=== PATIENT | female | born 1995 | race Caucasian/White ===

== ENCOUNTER 2016-11-06 19:48 | Emergency (ER) | payer MEDICAID ==
[2016-11-06 20:13] VITALS: O2SAT 100
[2016-11-06] MEDS ORDERED: Sodium Chloride 0.9% 1,000 ML IV ONE (20:29)
[2016-11-06] MEDS ORDERED: Sodium Chloride 0.9% 1,000 ML ONE (20:53)
[2016-11-06 20:55] LABS: BASO % 0.5 % (0.0-2.0); EOS # 0.1 K/uL (0.0-0.7); EOS % 2.1 % (0.0-4.0); HEMATOCRIT 40.5 % (34.0-47.0); LYMPH # 2.9 K/uL (1.0-4.3); LYMPH % 48.7 % (20.0-40.0); MEAN CELL VOLUME 98.2 fL (81.0-99.0); MEAN CORPUSCULAR HGB CONC 33.6 g/dL (33.0-37.0); MEAN PLATELET VOLUME 9.2 fL (7.2-11.7); MONO # 0.5 K/uL (0.0-0.8); MONO % 8.3 % (0.0-10.0); RED CELL DISTRIBUTION WIDTH 12.9 % (11.5-14.5)
[2016-11-06 21:03] VITALS: RESP 18
[2016-11-06 21:04] LABS: CHLORIDE 99 mmol/L (98-107)
[2016-11-06 21:05] LABS: POTASSIUM 4.2 mmol/L (3.6-5.2); SODIUM 138 mmol/L (132-148)
[2016-11-06 21:06] LABS: INR 1.1; PARTIAL THROMBOPLASTIN TIME 29 SECONDS (21-34)
[2016-11-06 21:07] LABS: ALB/GLOB RATIO 1.2 (1.0-2.1); ALKALINE PHOSPHATASE 35 U/L (38-126); AST/SGOT 17 U/L (14-36); BILIRUBIN,TOTAL 0.6 mg/dL (0.2-1.3); CARBON DIOXIDE 26 mmol/L (22-30); GFR AFRICAN-AMERICAN > 60; TOTAL PROTEIN 7.8 g/dL (6.3-8.3)
[2016-11-06 21:08] LABS: ALT/SGPT 24 U/L (9-52); BLOOD UREA NITROGEN 7 mg/dL (7-17); CALCIUM 9.9 mg/dl (8.6-10.4); GLUCOSE,RANDOM 84 mg/dL (65-105); MAGNESIUM 1.6 mg/dL (1.6-2.3)
[2016-11-06 21:16] LABS: RBC URINE 3 /hpf (0-3); URINE BACTERIA OCC (<OCC); URINE BILIRUBIN NEGATIVE (NEGATIVE); URINE BLOOD NEGATIVE (NEGATIVE); URINE COLOR Yellow (YELLOW); URINE GLUCOSE (UA) NORMAL (Normal); URINE KETONE NEGATIVE (NEGATIVE); URINE LEUKOCYTE ESTERASE 1+ Leu/uL (Negative); URINE PROTEIN NEGATIVE (NEGATIVE); URINE UROBILINOGEN NORMAL mg/dL (0.2-1.0); WBC URINE 5 /hpf (0-5)
--- NOTE | 2016-11-06 21:59 | C.PDOC ---
Time Seen by Provider: 11/06/16 20:17 Chief Complaint (Nursing): Palpitations History Per: Patient Onset/Duration Of Symptoms: Days (3), Intermittent Episodes Current Symptoms Are (Timing): Still Present Associated Symptoms: Headache Quality Of Symptoms: Rapid Heart Rate Severity: Moderate Exacerbating Factor(s): Pos: None Recent travel outside of the [place]: No Additional History Per: Prior Records Past Medical History Reviewed: Historical Data, Nursing Documentation, Vital Signs Vital Signs: Last Vital Signs Temp 98 F 11/06/16 20:08 Pulse 68 11/06/16 20:58 Resp 18 11/06/16 20:58 BP 137/86 11/06/16 20:58 Pulse Ox 100 11/06/16 20:58 - Medical History PMH: Hyperlipidemia Surgical History: No Surg Hx Family History: States: Unknown Family Hx - Social History Hx Tobacco Use: No Hx Alcohol Use: No Hx Substance Use: No - Immunization History Hx Tetanus Toxoid Vaccination: No Hx Influenza Vaccination: No Hx Pneumococcal Vaccination: No Review Of Systems Except As Marked, All Systems Reviewed And Found Negative. Constitutional: Negative for: Fever, Weakness ENT: Negative for: Throat Pain Cardiovascular: Negative for: Chest Pain Respiratory: Positive for: Shortness of Breath. Negative for: Hemoptysis Gastrointestinal: Negative for: Vomiting, Abdominal Pain Musculoskeletal: Negative for: Neck Pain, Back Pain, Leg Pain Skin: Negative for: Rash Neurological: Positive for: Headache. Negative for: Weakness, Numbness, Seizures, Altered Mental Status Physical Exam - Physical Exam Appears: Non-toxic, No Acute Distress Skin: Normal Color, Warm, Dry, No Rash Head: Atraumatic, Normacephalic Eye(s): bilateral: Normal Inspection, PERRL, EOMI Oral Mucosa: Moist Neck: Normal ROM, Supple Cardiovascular: Rhythm Regular Respiratory: Normal Breath Sounds, No Accessory Muscle Use Gastrointestinal/Abdominal: Soft, No Tenderness Back: No CVA Tenderness Extremity: Normal ROM, No Pedal Edema, No Calf Tenderness Neurological/Psych: Oriented x3, Normal Speech, Normal Cognition, Normal Cranial Nerves, No Cerebellar Signs, Normal Motor, Normal Sensation ED Course And Treatment - Laboratory Results Result Diagrams: 11/06/16 20:51 11/06/16 20:51 Lab Interpretation: No Acute Changes Urine POC: Negative ECG: Interpreted By Me, Viewed By Me ECG Rhythm: Sinus Rhythm ECG Interpretation: No Acute Changes Rate From EC O2 Sat by Pulse Oximetry: 100 Pulse Ox Interpretation: Normal - Radiology CXR: Interpreted by Me, Viewed By Me CXR Interpretation: Yes: No Acute Disease - CT Scan/US CT head Other Rad Studies (CT/US): Read By Radiologist, Radiology Report Reviewed CT/US Interpretation: No acute findings. Reassessment Condition: Improved Progress - Interventions Interventions:: Observation, Intravenous fluid - Medications Administered Oral: Acetaminophen - Data Reviewed Data Reviewed: Lab, Diagnostic imaging, EKG, Old records - Patient Status Patient status: Mostly improved - Continuity of Care Discussed patient case with:: Patient, ED Nurse - Patient Plan Patient Plan: Discharge, F/U with PCP Disposition Counseled Patient/Family Regarding: Studies Performed, Diagnosis, Need For Followup, Rx Given - Disposition Disposition: HOME/ ROUTINE Disposition Time: 22:00 Condition: IMPROVED Additional Instructions: Follow up with your doctor for further evaluation and treatment. Return to the ER if you develop weakness, numbness, vomiting, chest pain, dizziness, pass out , worsening of symptoms or if you have any other concerns. Instructions: Palpitations (ED), General Headache (ED) Forms: [employer] (Korean) Print Language: KHMER - Clinical Impression Clinical Impression: Headache, Palpitations
[2016-11-06 22:13] VITALS: BP 133/79; PULSE 97; TEMP 98.4
--- NOTE | 2016-11-07 08:22 | CT ---
PROCEDURE: CT HEAD WITHOUT CONTRAST. HISTORY: Right sided headache COMPARISON: None available. TECHNIQUE: Axial computed tomography images were obtained through the head/brain without intravenous contrast. Radiation dose: Total exam DLP = 864.16 mGy-cm. This CT exam was performed using one or more of the following dose reduction techniques: Automated exposure control, adjustment of the mA and/or kV according to patient size, and/or use of iterative reconstruction technique. FINDINGS: HEMORRHAGE: No intracranial hemorrhage. BRAIN: No mass effect or edema. No atrophy or chronic microvascular ischemic changes. VENTRICLES: Unremarkable. No hydrocephalus. CALVARIUM: Unremarkable. PARANASAL SINUSES: Unremarkable as visualized. No significant inflammatory changes. MASTOID AIR CELLS: Unremarkable as visualized. No inflammatory changes. OTHER FINDINGS: None. IMPRESSION: No acute intracranial pathology identified. Preliminary impression was provided by virtual radiologic.
--- NOTE | 2016-11-07 09:14 | RAD ---
HISTORY: Palpitations COMPARISON: None available. TECHNIQUE: Chest, one view. FINDINGS: LUNGS: No focal consolidation. Please note that chest x-ray has limited sensitivity for the detection of pulmonary masses. PLEURA: No significant pleural effusion identified. No definite pneumothorax . CARDIOVASCULAR: Heart size appears within normal limits. OSSEOUS STRUCTURES: No acute osseous abnormality identified. VISUALIZED UPPER ABDOMEN: Unremarkable. OTHER FINDINGS: None. IMPRESSION: No focal consolidation, significant pleural effusion, or definite pneumothorax identified.
--- NOTE | 2016-11-07 12:29 | CARD ---
APPROVED REPORT EKG Measurement Heart [id number] <Conclusion> Sinus bradycardia Otherwise normal ECG
== END 2016-11-06 22:32 | disposition home or self-care (01) ==
LOC: C.ER 19:48
DX: R51 Headache (principal); R00.2 Palpitations
CPT/HCPCS: 70450; 71010; 80053; 81001; 83735; 84703; 85025; 85378; 85610; 85730; 93005; 96360; 99285; J7040

== ENCOUNTER 2017-07-28 23:23 | Emergency (ER) | payer MEDICAID ==
[2017-07-28 23:33] VITALS: BP 144/70; PULSE 89; RESP 20; TEMP 98.5; O2SAT 99
--- NOTE | 2017-07-29 00:09 | C.PDOC ---
History Of Present Illness 22 year old female presents to the ED c/o pain to the left ear radiating to left side of neck. Patient reports she has not taken any pain medications at home for her symptoms. Patient denies fever, chills, nausea, vomit, dizziness, URI symptoms, weakness, numbness. Time Seen by Provider: 07/28/17 23:45 Chief Complaint (Nursing): ENT Problem History Per: Patient History/Exam Limitations: None Onset/Duration Of Symptoms: Days Current Symptoms Are (Timing): Still Present Quality (Ear): Pain W/Touch Severity: None Anticoagulant/Antiplatlet Use?: No Past Medical History Reviewed: Historical Data, Nursing Documentation, Vital Signs Vital Signs: Last Vital Signs Temp 98.5 F 07/28/17 23:29 Pulse 89 07/28/17 23:29 Resp 20 07/29/17 00:17 BP 144/70 07/28/17 23:29 Pulse Ox 99 07/29/17 00:51 - Medical History PMH: Hyperlipidemia Surgical History: No Surg Hx Family History: States: Unknown Family Hx - Social History Hx Tobacco Use: No Hx Alcohol Use: No Hx Substance Use: No - Immunization History Hx Tetanus Toxoid Vaccination: No Hx Influenza Vaccination: No Hx Pneumococcal Vaccination: No Review Of Systems Constitutional: Negative for: Fever, Chills ENT: Positive for: Ear Pain. Negative for: Ear Discharge, Nose Discharge, Nose Congestion Respiratory: Negative for: Cough, Shortness of Breath Gastrointestinal: Negative for: Nausea, Vomiting Skin: Negative for: Rash Neurological: Negative for: Headache, Dizziness Physical Exam - Physical Exam Appears: Non-toxic, No Acute Distress Skin: Normal Color, Warm, Dry Head: Atraumatic, Normacephalic Eye(s): bilateral: Normal Inspection, PERRL, EOMI Ear(s): Bilateral: Normal Nose: No Discharge, No Epistaxis Oral Mucosa: Moist Throat: Normal, No Erythema, No Exudate Neck: Normal ROM, No Midline Cervical Tenderness, Supple Lymphatic: No Adenopathy (no auricular ) Extremity: Normal ROM Neurological/Psych: Oriented x3, Normal Speech, Normal Cognition Gait: Steady ED Course And Treatment O2 Sat by Pulse Oximetry: 99 (ON RA) Pulse Ox Interpretation: Normal Progress Note: On reassessment, patient is resting comfortably, and is in no acute distress. Patient was instructed to follow up with physician/clinic in 1- 2 days for further evaluation. 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 - Scribe Statement The provider has reviewed the documentation as recorded by the Scribe Bhupinder George All medical record entries made by the Mayoibrachel were at my direction and personally dictated by me. I have reviewed the chart and agree that the record accurately reflects my personal performance of the history, physical exam, medical decision making, and the department course for this patient. I have also personally directed, reviewed, and agree with the discharge instructions and disposition.
== END 2017-07-29 00:17 | disposition home or self-care (01) ==
LOC: C.ER 23:23
DX: H92.02 Otalgia, left ear (principal)

== ENCOUNTER 2017-09-27 21:09 | Inpatient (IN) | payer MEDICAID ==
[2017-09-27] MEDS ORDERED: Sodium Chloride 0.9% 1,000 ML IV ONE (21:27)
--- NOTE | 2017-09-27 21:34 | C.PDOC ---
"History Of Present Illness 22 year old female presents to the ED complaining of epigastric and rlq abdominal pain ongoing for the last 2 hours. Patient denies any fever, vomiting , diarrhea, nausea, or urinary symptoms. She reports she is currently on her menstrual cycle. Time Seen by Provider: 09/27/17 21:21 Chief Complaint (Nursing): Abdominal Pain History Per: Patient History/Exam Limitations: no limitations Onset/Duration Of Symptoms: Hrs (2 hours) Current Symptoms Are (Timing): Still Present Location Of Pain/Discomfort: Epigastric Associated Symptoms: denies: Fever, Nausea, Vomiting, Diarrhea Last Menstral Period: currently on her menstrual cycle Past Medical History Reviewed: Historical Data, Nursing Documentation, Vital Signs Vital Signs: Last Vital Signs Temp 98.2 F 09/28/17 01:07 Pulse 69 09/28/17 01:07 Resp 20 09/28/17 01:07 BP 127/78 09/28/17 01:07 Pulse Ox 100 09/28/17 01:07 - Medical History PMH: Hyperlipidemia Surgical History: No Surg Hx Family History: States: No Known Family Hx - Social History Hx Tobacco Use: No Hx Alcohol Use: No Hx Substance Use: No - Immunization History Hx Tetanus Toxoid Vaccination: No Hx Influenza Vaccination: No Hx Pneumococcal Vaccination: No Review Of Systems Except As Marked, All Systems Reviewed And Found Negative. Constitutional: Negative for: Fever Gastrointestinal: Positive for: Abdominal Pain (Epigastric region ). Negative for: Nausea, Vomiting, Diarrhea Genitourinary: Negative for: Dysuria, Incontinence, Vaginal Discharge, Vaginal Bleeding Physical Exam - Physical Exam Appears: Non-toxic, No Acute Distress Skin: Normal Color, Warm, Dry Head: Atraumatic, Normacephalic Eye(s): bilateral: Normal Inspection Nose: Normal Oral Mucosa: Moist Neck: Supple Chest: Symmetrical Cardiovascular: Rhythm Regular Respiratory: Normal Breath Sounds, No Rales, No Rhonchi, No Wheezing Gastrointestinal/Abdominal: Tenderness (Tenderness to epigastric region ), No Guarding, No Rebound Neurological/Psych: Oriented x3, Normal Speech Gait: Steady ED Course And Treatment - Laboratory Results Result Diagrams: 09/27/17 22:05 09/27/17 22:05 O2 Sat by Pulse Oximetry: 100 (RA) Pulse Ox Interpretation: Normal - CT Scan/US CT abd/pelvis Other Rad Studies (CT/US): Read By Radiologist, Radiology Report Reviewed CT/US Interpretation: EXAM: CT Abdomen and Pelvis With Intravenous Contrast. EXAM DATE/TIME: 09/27/2017 10:24 PM. CLINICAL HISTORY: 22 years old, female; Pain; Abdominal pain; Localized; Upper; Additional info: Upper abd pain,. leukocytosis. TECHNIQUE: Axial computed tomography images of the abdomen and pelvis with intravenous contrast. All CT scans at this facility use at least one of these dose optimization techniques: automated. exposure control; mA and/ or kV adjustment per patient size (includes targeted exams where dose is. matched to clinical indication); or iterative reconstruction. Coronal and sagittal reformatted images were created and reviewed. CONTRAST: 100 ml of [id number] administered intravenously. COMPARISON: No relevant prior studies available. FINDINGS: The liver, spleen, pancreas, kidneys are normal. No gallstones. The appendix is identified on coronal images 41 through 44, axial images 118 -135. It is mildly. dilated measuring 7.5 mm and the lumen is filled with fluid. No periappendiceal stranding. Calcification is noted within the cecal tip possibly producing obstruction. Dilated fluid and stool-filled loop of distal ileum is noted adjacent to the appendix. [facility] | Preliminary Radiology. Report. CONFIDENTIALITY STATEMENT. This report is intended only for the use of the referring physician, and only in accordance with law, If you received this in error, call [phone]. Page 2 of 2. There is free fluid in the right pelvis greater than what would be considered a normal physiologic. amount. The uterus appears normal. Ovarian follicles are noted. IMPRESSION: Mildly dilated, fluid filled appendix concerning for early appendicitis although there is no significant. periappendiceal inflammation. Clinical correlation is recommended and if clinical findings are. ambivalent, CT with oral contrast may be helpful to confirm lack of filling of the appendix. Thank you for allowing us to participate in the care of your patient. Dictated and Authenticated by: Sheryl Tineo MD. 09/28/2017 12:32 AM Eastern Time ([place] & [place]) Medical Decision Making Medical Decision Making: Plan: ro appendicits gastritis pancreatisi pud. - Labs - Zofran 4mg IVP - Protonix 40mg IVP - Fluids - UA - HCG - Reassess epigastirc rlq r/o appendicits. labs imaging pending. pt vomiting in er cannot tolerate po contrast. ct shows early appendciits. accepted to surgical service Disposition - Disposition Disposition: HOSPITALIZED Disposition Time: 02:00 Condition: STABLE - Clinical Impression Clinical Impression: Appendicitis - Scribe Statement The provider has reviewed the documentation as recorded by the Scribe Pauly Scott All medical record entries made by the Mayoibe were at my direction and personally dictated by me. I have reviewed the chart and agree that the record accurately reflects my personal performance of the history, physical exam, medical decision making, and the department course for this patient. I have also personally directed, reviewed, and agree with the discharge instructions and disposition. Decision To Admit - Pt Status Changed To: Hospital Disposition Of: Inpatient - Admit Certification Admit to Inpatient:: After my assessment, the patient will require hospitalization for at least two midnights. This is because of the severity of symptoms shown, intensity of services needed, and/or the medical risk in this patient being treated as an outpatient. - InPatient: Physician Admission Certification:: needs or - . Bed Request Type: Regular Admitting Physician: Scott Child Patient Diagnosis: Appendicitis"
[2017-09-27] MEDS ORDERED: Sodium Chloride 0.9% 1,000 ML ONE (21:52)
[2017-09-27 22:08] LABS: BASO # 0.1 K/uL (0.0-0.2); BASO % 0.5 % (0.0-2.0); EOS # 0.2 K/uL (0.0-0.7); EOS % 1.1 % (0.0-4.0); HEMOGLOBIN 13.7 g/dL (11.0-16.0); LYMPH # 2.7 K/uL (1.0-4.3); LYMPH % 19.5 % (20.0-40.0); MEAN CELL VOLUME 99.1 fL (81.0-99.0); MEAN CORPUSCULAR HEMOGLOBIN 33.3 pg (27.0-31.0); MEAN CORPUSCULAR HGB CONC 33.6 g/dL (33.0-37.0); MEAN PLATELET VOLUME 9.2 fL (7.2-11.7); MONO # 0.7 K/uL (0.0-0.8); MONO % 5.2 % (0.0-10.0); NEUT % 73.7 % (50.0-75.0); RBC 4.11 Mil/uL (3.80-5.20); RED CELL DISTRIBUTION WIDTH 13.2 % (11.5-14.5); WHITE BLOOD COUNT 13.6 K/uL (4.8-10.8)
[2017-09-27 22:10] LABS: HCG,QUALITATIVE URINE NEGATIVE (NEGATIVE)
[2017-09-27 22:13] LABS: SQUAMOUS EPITHIAL 1 /hpf (0-5); URINE BILIRUBIN NEGATIVE (NEGATIVE); URINE BLOOD NEGATIVE (NEGATIVE); URINE CLARITY Clear (Clear); URINE COLOR Yellow (YELLOW); URINE GLUCOSE (UA) NORMAL (Normal); URINE LEUKOCYTE ESTERASE NEG Leu/uL (Negative); URINE PROTEIN NEGATIVE (NEGATIVE)
[2017-09-27 22:16] LABS: INR 1.1; PROTHROMBIN TIME 11.8 SECONDS (9.7-12.2)
[2017-09-27 22:20] LABS: ALB/GLOB RATIO 1.3 (1.0-2.1); ALBUMIN 4.5 g/dL (3.5-5.0); ALT/SGPT 20 U/L (9-52); AST/SGOT 18 U/L (14-36); BLOOD UREA NITROGEN 9 mg/dL (7-17); CALCIUM 9.6 mg/dl (8.6-10.4); GFR AFRICAN-AMERICAN > 60; GFR NON-AFRICAN AMERICAN > 60; LIPASE 74 U/L (23-300)
[2017-09-27] MEDS ORDERED: Iodixanol 320 MG/ML 100 ML BOTTLE IV ONE (22:55)
[2017-09-28] MEDS ORDERED: Piperacillin/Tazobact 3.375 GM in Sodium Chloride 100 ML IVPB STA (00:38)
[2017-09-28] MEDS ORDERED: Piperacillin/Tazobact 3.375 gm 100 ML IVPB ONE ×2 (00:48→17:10)
--- NOTE | 2017-09-28 01:26 | CP.PCM.HP ---
History of Present Illness - History of Present Illness History of Present Illness: 22F with no significant PMHx presents to [facility] ED with complaints of abdominal pain. Patient states pain began around 6PM on 09/27/17 after having dinner. She describes pain began along paraumbilical region. At time of examination patient reported pain is now localized in the right lower quadrant. She denies fever/ chills, reports some nausea but denies vomiting, denies dysuria. Patient also reports feeling constipated. She rates her pain as a 10/10. She states she's never had symptoms like this before. PMH: as stated above PSH: none All: NKDA Soc Hx: Denies smoking, denies illicit drug use, denies EtOH use Present on Admission - Present on Admission Any Indicators Present on Admission: No Review of Systems - Review of Systems Review of Systems: 12pt ROS unremarkable except as sated in HPI Past Patient History - Past Social History Smoking Status: Never Smoked - PSYCHIATRIC Hx Substance Use: No - SURGICAL HISTORY Hx Surgeries: No - ANESTHESIA Hx Anesthesia: No Meds Allergies/Adverse Reactions: Allergies Allergy/AdvReac Type Severity Reaction Status Date / Time No Known Allergies Allergy Unverified 07/28/17 23:33 Physical Exam - Constitutional Appears: No Acute Distress - Head Exam Head Exam: NORMOCEPHALIC - Eye Exam Eye Exam: EOMI, Normal appearance - ENT Exam ENT Exam: Normal Exam - Respiratory Exam Respiratory Exam: NORMAL BREATHING PATTERN - Cardiovascular Exam Cardiovascular Exam: +S1, +S2 - GI/Abdominal Exam GI & Abdominal Exam: Rebound, Soft, Tenderness. absent: Distended, Firm, Guarding, Hernia, Rigid Additional comments: +McBurney's +RLQ tenderness +Rebound - Neurological Exam Neurological exam: Alert, Oriented x3 - Psychiatric Exam Psychiatric exam: Normal Mood - Skin Skin Exam: Dry, Intact, Warm Results - Vital Signs Recent Vital Signs: Last Vital Signs Temp 98.2 F 09/28/17 01:07 Pulse 69 09/28/17 01:07 Resp 20 09/28/17 01:07 BP 127/78 09/28/17 01:07 Pulse Ox 100 09/28/17 01:07 - Labs Result Diagrams: 09/27/17 22:05 09/27/17 22:05 Labs: Laboratory Results - last 24 hr 09/27/17 09/27/17 09/27/17 22:05 22:05 22:05 WBC 13.6 H D RBC 4.11 Hgb 13.7 Hct 40.8 MCV 99.1 H MCH 33.3 H MCHC 33.6 RDW 13.2 Plt Count 241 MPV 9.2 Neut % (Auto) 73.7 Lymph % (Auto) 19.5 L [place] % (Auto) 5.2 Eos % (Auto) 1.1 Baso % (Auto) 0.5 Neut # (Auto) 10.0 H Lymph # (Auto) 2.7 [place] # (Auto) 0.7 Eos # (Auto) 0.2 Baso # (Auto) 0.1 PT 11.8 INR 1.1 APTT 28 Sodium Potassium Chloride Carbon Dioxide Anion Gap BUN Creatinine Est GFR ( Amer) Est GFR (Non-Af Amer) Random Glucose Calcium Total Bilirubin AST ALT Alkaline Phosphatase Total Protein Albumin Globulin Albumin/Globulin Ratio Lipase Urine Color Yellow Urine Clarity Clear Urine pH 6.0 Ur Specific [place] 1.025 Urine Protein Negative Urine Glucose (UA) Normal Urine Ketones Negative Urine Blood Negative Urine Nitrate Negative Urine Bilirubin Negative Urine Urobilinogen 2.0 H Ur Leukocyte Esterase Neg Urine WBC (Auto) 1 Urine RBC (Auto) 5 H Ur Squamous Epith Cells 1 Urine HCG, Qual Negative 09/27/17 22:05 WBC RBC Hgb Hct MCV MCH MCHC RDW Plt Count MPV Neut % (Auto) Lymph % (Auto) [place] % (Auto) Eos % (Auto) Baso % (Auto) Neut # (Auto) Lymph # (Auto) [place] # (Auto) Eos # (Auto) Baso # (Auto) PT INR APTT Sodium 144 Potassium 3.7 Chloride 102 Carbon Dioxide 26 Anion Gap 19 BUN 9 Creatinine 0.8 Est GFR ( Amer) > 60 Est GFR (Non-Af Amer) > 60 Random Glucose 111 H Calcium 9.6 Total Bilirubin 0.5 AST 18 ALT 20 Alkaline Phosphatase 44 Total Protein 7.9 Albumin 4.5 Globulin 3.4 Albumin/Globulin Ratio 1.3 Lipase 74 Urine Color Urine Clarity Urine pH Ur Specific [place] Urine Protein Urine Glucose (UA) Urine Ketones Urine Blood Urine Nitrate Urine Bilirubin Urine Urobilinogen Ur Leukocyte Esterase Urine WBC (Auto) Urine RBC (Auto) Ur Squamous Epith Cells Urine HCG, Qual - Imaging and Cardiology CT scan - abdomen Status: Image reviewed by me, Report reviewed by me Assessment & Plan - Assessment and Plan (Free Text) Assessment: 22F with acute appendicitis Plan: Lux score 8/10 NPO IVF ABx Analgesic/Anti-emetic SCDs OR for laparoscopic appendectomy Consent in chart Further recs per Dr. Mateusz White PGY3
[2017-09-28] MEDS: Lactated Ringer's 1,000 ML IV SCH ×4 (01:37→21:21)
[2017-09-28] MEDS: Piperacillin/Tazobact 3.375 GM in Sodium Chloride 100 ML IVPB SCH ×3 (06:55→18:04)
--- NOTE | 2017-09-28 07:54 | CP.PCM.CON ---
Addendum entered and electronically signed by Bobby Emerson DO 09/28/17 11:49: Patient is medically optimized for surgery. Anticoagulation determined by surgery. Pre-operative, Intra-operative, and post-operative management per Dr. Child and the surgical team. Addendum entered and electronically signed by Bobby Emerson DO 09/28/17 09:39: Spoke with Dr. Pierre, who has reviewed STAT ECHO. ECHO showed no left ventricular dysfunction. Per Dr. Pierre patient is low-risk for intra- operative cardiac event. Calculated risk scores: Lucero Score: Estimated Risk Probability for Perioperative Myocardial Infarction or Cardiac Arrest 0.21 % Detsky score: Risk Index Class II (7% Complication Risk) Original Note: <Bobby Emerson - Last Filed: 09/28/17 09:26> History of Present Illness - History of Present Illness History of Present Illness: PGY2 consult note for hospitalist service Reason for consult: Medical clearance CC: RLQ abdominal pain HPI: Patient is a 22 year old female, with PMHx of pericardial effusion and hyperlipidemia, presenting to [facility] ED for abdominal pain. Patient that pain began yesterday after dinner. The pain came on "suddenly" and was initially located in the paraumbilical region. Over an hour pain became progressively worse and patient decided to go to ED. While in the ED pain became a "steady, stabbing pain" that shifted to the right lower quadrant. She denies fever/chills , but admits anorexia and one episode of non-bloody vomiting while in the ED. She rates pain currently as a 10/10. FDLMP: 09/23/17 Patient reports history of pericardial effusion. Patient reports that she becomes short of breath "when she walks more than 2 blocks" and walks more than 2 flights of stairs. She denies dyspnea at rest, cough, fever, or chills. She states she has seen Dr. Bhanu Pierre, [employer], as outpatient and had ECHO performed one month ago. This science writer spoke with Dr Pierre who reports ECHO showed pericardial effusion but showed no sign of LV dysfunction. PMHx: Pericardial effusion, Hyperlipidemia PSHx: [place] tooth extraction (2014) SHx: Denies Allergies: Denies Fam Hx: Father - HTN, Mother - denies Home meds: Junel - PO (OCP), Multivitamin, Fish oil 1 gram daily PMD: Faheem Sheth Cardio outpatient: Ignacio Review of Systems - Constitutional Constitutional: Anorexia. absent: Chills, Fever - EENT Eyes: absent: Change in Vision Ears: absent: Ear Pain - Cardiovascular Cardiovascular: Dyspnea on Exertion. absent: Chest Pain, Dyspnea - Respiratory Respiratory: Dyspnea. absent: Cough - Gastrointestinal Gastrointestinal: Abdominal Pain (RLQ), Nausea, Vomiting (non-bloody) - Genitourinary Genitourinary: absent: Dysuria - Menstruation Menstruation: Currently Menstual - Musculoskeletal Musculoskeletal: absent: Numbness, Tingling - Integumentary Integumentary: absent: Dry Skin, Wounds - Psychiatric Psychiatric: absent: Anxiety, Depression - Endocrine Endocrine: absent: Palpitations Past Patient History - Past Social History Smoking Status: Never Smoked - PSYCHIATRIC Hx Substance Use: No - SURGICAL HISTORY Hx Surgeries: No - ANESTHESIA Hx Anesthesia: No Meds Allergies/Adverse Reactions: Allergies Allergy/AdvReac Type Severity Reaction Status Date / Time No Known Allergies Allergy Unverified 07/28/17 23:33 - Medications Medications: Current Medications Acetaminophen (Tylenol 325mg Tab) 650 mg PO Q6 PRN PRN Reason: Fever >100.4 F Lactated Ringer's (Lactated Ringer's) 1,000 mls @ 100 mls/hr IV .Q10H [facility] Last Admin: 09/28/17 01:37 Dose: 100 mls/hr Piperacillin Sod/Tazobactam (Sod 3.375 gm/ Sodium Chloride) 100 mls @ 200 mls/ hr IVPB Q6H [facility] PRN Reason: Protocol Last Admin: 09/28/17 06:55 Dose: 200 mls/hr Morphine Sulfate (Morphine) 4 mg IVP Q4 PRN PRN Reason: Pain, moderate (4-7) Ondansetron HCl (Zofran Inj) 4 mg IVP Q6H PRN PRN Reason: Nausea/Vomiting Physical Exam - Constitutional Appears: Non-toxic, No Acute Distress - Head Exam Head Exam: ATRAUMATIC, NORMAL INSPECTION - Eye Exam Eye Exam: EOMI. absent: Scleral icterus Pupil Exam: PERRL - ENT Exam ENT Exam: Mucous Membranes Moist - Neck Exam Neck exam: Positive for: Normal Inspection - Respiratory Exam Respiratory Exam: Clear to Auscultation Bilateral, NORMAL BREATHING PATTERN - Cardiovascular Exam Cardiovascular Exam: Bradycardia, +S1, +S2 - GI/Abdominal Exam GI & Abdominal Exam: Guarding (voluntary, RLQ), Normal Bowel Sounds, Soft, Tenderness (RLQ). absent: Diminished Bowel Sounds Additional comments: Positive McBurney Sign Positive Psoas/Obturator - Extremities Exam Extremities exam: Positive for: normal inspection. Negative for: pedal edema, tenderness - Back Exam Back exam: absent: CVA tenderness (L), CVA tenderness (R) - Neurological Exam Neurological exam: Alert, CN II-XII Intact, Oriented x3 - Psychiatric Exam Psychiatric exam: Normal Affect, Normal Mood - Skin Skin Exam: Dry, Normal Color, Warm Additional comments: Tattoo on left chest, and midline upper back Results - Vital Signs Recent Vital Signs: Last Vital Signs Temp 98.5 F 09/28/17 07:16 Pulse 48 L 09/28/17 07:16 Resp 20 09/28/17 07:16 BP 138/83 09/28/17 07:16 Pulse Ox 100 09/28/17 07:16 - Labs Result Diagrams: 09/27/17 22:05 09/27/17 22:05 Labs: Laboratory Results - last 24 hr 09/27/17 09/27/17 09/27/17 22:05 22:05 22:05 WBC 13.6 H D RBC 4.11 Hgb 13.7 Hct 40.8 MCV 99.1 H MCH 33.3 H MCHC 33.6 RDW 13.2 Plt Count 241 MPV 9.2 Neut % (Auto) 73.7 Lymph % (Auto) 19.5 L Foard % (Auto) 5.2 Eos % (Auto) 1.1 Baso % (Auto) 0.5 Neut # (Auto) 10.0 H Lymph # (Auto) 2.7 Foard # (Auto) 0.7 Eos # (Auto) 0.2 Baso # (Auto) 0.1 PT 11.8 INR 1.1 APTT 28 Sodium Potassium Chloride Carbon Dioxide Anion Gap BUN Creatinine Est GFR ( Amer) Est GFR (Non-Af Amer) Random Glucose Calcium Total Bilirubin AST ALT Alkaline Phosphatase Total Protein Albumin Globulin Albumin/Globulin Ratio Lipase Urine Color Yellow Urine Clarity Clear Urine pH 6.0 Ur Specific [place] 1.025 Urine Protein Negative Urine Glucose (UA) Normal Urine Ketones Negative Urine Blood Negative Urine Nitrate Negative Urine Bilirubin Negative Urine Urobilinogen 2.0 H Ur Leukocyte Esterase Neg Urine WBC (Auto) 1 Urine RBC (Auto) 5 H Ur Squamous Epith Cells 1 Urine HCG, Qual Negative Blood Type Antibody Screen 09/27/17 09/28/17 22:05 04:26 WBC RBC Hgb Hct MCV MCH MCHC RDW Plt Count MPV Neut % (Auto) Lymph % (Auto) Foard % (Auto) Eos % (Auto) Baso % (Auto) Neut # (Auto) Lymph # (Auto) Foard # (Auto) Eos # (Auto) Baso # (Auto) PT INR APTT Sodium 144 Potassium 3.7 Chloride 102 Carbon Dioxide 26 Anion Gap 19 BUN 9 Creatinine 0.8 Est GFR ( Amer) > 60 Est GFR (Non-Af Amer) > 60 Random Glucose 111 H Calcium 9.6 Total Bilirubin 0.5 AST 18 ALT 20 Alkaline Phosphatase 44 Total Protein 7.9 Albumin 4.5 Globulin 3.4 Albumin/Globulin Ratio 1.3 Lipase 74 Urine Color Urine Clarity Urine pH Ur Specific [place] Urine Protein Urine Glucose (UA) Urine Ketones Urine Blood Urine Nitrate Urine Bilirubin Urine Urobilinogen Ur Leukocyte Esterase Urine WBC (Auto) Urine RBC (Auto) Ur Squamous Epith Cells Urine HCG, Qual Blood Type A POSITIVE Antibody Screen Negative Assessment & Plan - Assessment and Plan (Free Text) Plan: Acute Appendicitis Admit to Med/surg WBC Elevated, Afebrile CT A/P (09/28/17): Mildly dilated, fluid filled appendix concerning for early appendicitis although there is no significant periappendiceal inflammation. Clinical correlation is recommended and if clinical findings are ambivalent, CT with oral contrast may be helpful to confirm lack of filling of the appendix. Lipase 74,LFTs WNL Pre-op testing: CXR (09/28/17): No acute disease (wetread, f/u official report) Coags: INR 1.1 B-HCG test: negative UA: Negative LE/nitrite, 5 RBC f/u EKG Dr. Pierre, Cardio consulted for cardiac clearance, help appreciated - STAT ECHO prior to surgery Zosyn 3.375gm IV Q6H (started 09/28/17, Day 1) LR @ 100cc/hr Tylenol 650mg PO Q6H PRN Morphine 4mg IV Q4H PRN Zofran 4mg IV Q6H PRN for nausea NPO Management of Pain Meds/Fluids/Diet per Surgical team Lucero Score: Estimated Risk Probability for Perioperative Myocardial Infarction or Cardiac Arrest 0.21 % Detsky score: Risk Index Class II (7% Complication Risk) Pericardial Effusion Previous ECHO (08/2017): Performed outpatient. Seen by [employer] Dr Pierre who reports it showed "pericardial effusion without signs of LV dysfunction" Dr. Pierre, Cardio consulted for cardiac clearance, help appreciated - STAT ECHO prior to surgery Pt NPO for surgery pending cardiac clearance Hyperlipidemia Continue Home Fish Oil 1 gm daily once no longer NPO Leukocytosis WBC 13.6 on admission, without left shift or bandemia Afebrile Etiology: Appendicitis Antibiotics as above Monitor Prophylaxis SCDs HOLD heparin due to pending surgical intervention; restart on surgical team instructions Protonix 40mg IV given once in ED Bobby Emerson PGY-2 D/w attending, Dr. Collier <Sandie Collier V - Last Filed: 09/28/17 12:25> Meds - Medications Medications: Current Medications Acetaminophen (Tylenol 325mg Tab) 650 mg PO Q6 PRN PRN Reason: Fever >100.4 F Lactated Ringer's (Lactated Ringer's) 1,000 mls @ 100 mls/hr IV .Q10H [facility] Last Admin: 09/28/17 01:37 Dose: 100 mls/hr Piperacillin Sod/Tazobactam (Sod 3.375 gm/ Sodium Chloride) 100 mls @ 200 mls/ hr IVPB Q6H [facility] PRN Reason: Protocol Last Admin: 09/28/17 06:55 Dose: 200 mls/hr Morphine Sulfate (Morphine) 4 mg IVP Q4 PRN PRN Reason: Pain, moderate (4-7) Ondansetron HCl (Zofran Inj) 4 mg IVP Q6H PRN PRN Reason: Nausea/Vomiting Results - Vital Signs Recent Vital Signs: Last Vital Signs Temp 98.1 F 09/28/17 08:27 Pulse 54 L 09/28/17 08:27 Resp 20 09/28/17 08:27 BP 135/85 09/28/17 08:27 Pulse Ox 98 09/28/17 08:27 - Labs Result Diagrams: 09/27/17 22:05 09/27/17 22:05 Labs: Laboratory Results - last 24 hr 09/27/17 09/27/17 09/27/17 22:05 22:05 22:05 WBC 13.6 H D RBC 4.11 Hgb 13.7 Hct 40.8 MCV 99.1 H MCH 33.3 H MCHC 33.6 RDW 13.2 Plt Count 241 MPV 9.2 Neut % (Auto) 73.7 Lymph % (Auto) 19.5 L Foard % (Auto) 5.2 Eos % (Auto) 1.1 Baso % (Auto) 0.5 Neut # (Auto) 10.0 H Lymph # (Auto) 2.7 Foard # (Auto) 0.7 Eos # (Auto) 0.2 Baso # (Auto) 0.1 PT 11.8 INR 1.1 APTT 28 Sodium Potassium Chloride Carbon Dioxide Anion Gap BUN Creatinine Est GFR ( Amer) Est GFR (Non-Af Amer) Random Glucose Calcium Total Bilirubin AST ALT Alkaline Phosphatase Total Protein Albumin Globulin Albumin/Globulin Ratio Lipase Urine Color Yellow Urine Clarity Clear Urine pH 6.0 Ur Specific [place] 1.025 Urine Protein Negative Urine Glucose (UA) Normal Urine Ketones Negative Urine Blood Negative Urine Nitrate Negative Urine Bilirubin Negative Urine Urobilinogen 2.0 H Ur Leukocyte Esterase Neg Urine WBC (Auto) 1 Urine RBC (Auto) 5 H Ur Squamous Epith Cells 1 Urine HCG, Qual Negative Blood Type Antibody Screen 09/27/17 09/28/17 22:05 04:26 WBC RBC Hgb Hct MCV MCH MCHC RDW Plt Count MPV Neut % (Auto) Lymph % (Auto) Foard % (Auto) Eos % (Auto) Baso % (Auto) Neut # (Auto) Lymph # (Auto) [place] # (Auto) Eos # (Auto) Baso # (Auto) PT INR APTT Sodium 144 Potassium 3.7 Chloride 102 Carbon Dioxide 26 Anion Gap 19 BUN 9 Creatinine 0.8 Est GFR ( Amer) > 60 Est GFR (Non-Af Amer) > 60 Random Glucose 111 H Calcium 9.6 Total Bilirubin 0.5 AST 18 ALT 20 Alkaline Phosphatase 44 Total Protein 7.9 Albumin 4.5 Globulin 3.4 Albumin/Globulin Ratio 1.3 Lipase 74 Urine Color Urine Clarity Urine pH Ur Specific [place] Urine Protein Urine Glucose (UA) Urine Ketones Urine Blood Urine Nitrate Urine Bilirubin Urine Urobilinogen Ur Leukocyte Esterase Urine WBC (Auto) Urine RBC (Auto) Ur Squamous Epith Cells Urine HCG, Qual Blood Type A POSITIVE Antibody Screen Negative Attending/Attestation - Attestation I have personally seen and examined this patient.: Yes I have fully participated in the care of the patient.: Yes I have reviewed all pertinent clinical information: Yes Notes (Text): Patient seen, examined, case discussed with general medical practitioner. 32-year-old female past medical history including pericardial effusion, high cholesterol came into the emergency room overnight for abdominal pain secondary to appendicitis. Medicine is consultation per request a surgery for medical clearance in light of pericardial effusion. Patient has underwent a stat echo this morning. Patient is accompanied by both her mother, father, and boyfriend at bedside. Patient has allowed o discuss her medical information in front of these members of her family at 9AM. Review of systems: Denies fever, denies chills., denies chest pain, denies shortness of breath, reports in nausea, reports right lower abdominal pain about 7-10 on pain scale, denies dysuria, denies constipation, denies diarrhea, denies numbness tingling, Resident has spoken with patient's candy cooker helper Dr. Pierre who is reviewed echo and indicated patient is has low intraoperative cardiac risk and has normal LV function. Patient does have follow-up appointment with Dr. Pierre in October. Patient herself takes fish oil for her cholesterol problem and is on oral contraceptives. Patient reports last day of her period was yesterday. Review of labs noted and imaging noted: Chest x-ray shows no active disease. CAT scan abdomen and pelvis: Mildly dilated fluid-filled appendix concerning for developing or early acute appendicitis clinical correlation is recommended. Dilated fluid and stool-filled loops of distal ileum noted adjacent to the appendix. Under distended transverse colon, limits evacuation of that level. Clinical with oral contrast enhanced scan may be better free fluid in the right pelvis greater than left. EKG: Sinus bradycardia heart rate 53 no blocks noted Pending official read of echo. Her candy cooker helper has reviewed normal left ventricle function is low cardiac risk or discussion with resident Emerson. Assessment/Plan 1) Acute Appendicitis Assessment and plan Patient admitted to general surgery. General surgeon Dr. Cruz on the case Preoperative/intraoperative/postoperative management per surgery Chemical anticoagulation to be determined by surgery Pain management to be determined by surgery Zosyn 3.375gm IV Q6H (started 09/28/17, Day 1) LR @ 100cc/hr Tylenol 650mg PO Q6H PRN Morphine 4mg IV Q4H PRN Zofran 4mg IV Q6H PRN for nausea NPO Medicine on consult for medical clearance in light of medical history including pericardial effusion and cholesterol CT A/P (09/28/17): Mildly dilated, fluid filled appendix concerning for early appendicitis although there is no significant periappendiceal inflammation. Clinical correlation is recommended and if clinical findings are ambivalent, CT with oral contrast may be helpful to confirm lack of filling of the appendix. Lipase 74,LFTs WNL Pre-op testing: CXR (09/28/17): No acute disease Coags: INR 1.1 B-HCG test: negative EKG: Sinus bradycardia heart rate 53 no blocks noted---> asymptomatic Pending official read of echo. Her candy cooker helper has reviewed normal left ventricle function is low cardiac risk or discussion with resident Murch. Dr. Pierre, Cardio consulted for cardiac clearance, help appreciated - STAT ECHO prior to surgery: Reviewed with resident: Normal systolic LV function, her candy cooker helper stable for surgery Nic Peripoerative Cardiac Risk Score: 0.21% Estimated Risk Probability for Perioperative Myocardial Infarction or Cardiac Arrest Detsky score cardiac risk for noncardiac surgery :1 associated Class II (7% Complication Risk) Patient is medically optimized prior to procedure. Surgery and anesthesia anesthesia to discuss the risk and benefits of procedure respectively. 2) History of Pericardial Effusion Assessment and plan * Previous ECHO (08/2017): Performed outpatient. Seen by [employer] Dr Pierre who reports it showed "pericardial effusion without signs of LV dysfunction" * Dr. Pierre, Cardio consulted for cardiac clearance, help appreciated * Completed STAT ECHO prior to surgery * Per cardiology, stable for procedure 3) Hyperlipidemia Assessment and plan * Continue Home Fish Oil 1 gm daily once no longer NPO 4) Leukocytosis Assessment and plan * WBC 13.6 on admission, without left shift or bandemia * Afebrile * Etiology: Appendicitis * Antibiotics as above * Monitor 5) Abnormal UA Assessment and plan * Patient is asymptomatic for any Urinary tract infection. * Patient reports she finished the last day of her period yesterday. * Recommend repeat UA patient has completed period. 6) Prophylaxis * SCDs * HOLD heparin due to pending surgical intervention; restart on surgical team instructions
--- NOTE | 2017-09-28 08:54 | CT ---
Date of service: 09/27/2017 PROCEDURE: CT Abdomen and Pelvis without intravenous contrast HISTORY: upper abdominal pain,leukocytosis COMPARISON: None. TECHNIQUE: Multiple contiguous axial images were performed through the abdomen and pelvis with the use intravenous contrast. Subsequently, sagittal and coronal reformatted images were obtained. Radiation dose: Total exam DLP = 316 mGy-cm. This CT exam was performed using one or more of the following dose reduction techniques: Automated exposure control, adjustment of the mA and/or kV according to patient size, and/or use of iterative reconstruction technique. FINDINGS: LOWER THORAX: Unremarkable. LIVER: Mild intrahepatic biliary ductal dilatation. GALLBLADDER AND BILE DUCTS: Unremarkable. PANCREAS: Unremarkable. No gross lesion or ductal dilatation. SPLEEN: Unremarkable. ADRENALS: Unremarkable. No mass. KIDNEYS AND URETERS: Unremarkable. No hydronephrosis. No solid mass. VASCULATURE: Unremarkable. No aortic aneurysm. BOWEL: Dilated fluid and stool filled loops of distal ileum noted adjacent to the appendix. Under distended transverse colon, limits evaluation at that level. Correlation with oral contrast-enhanced scan may helpful for better delineation of the bowel. APPENDIX: Prominent appendix measuring up to 8 millimeters with associated fluid filled lumen. This is best identified on series 3, images 118-135. In addition, there is a 5 millimeter calcification within the cecal tip which may represent a developing appendicolith and or calcification versus obstruction. Clinical correlation. PERITONEUM: Free fluid in the right pelvis greater than left. LYMPH NODES: Unremarkable. No enlarged lymph nodes. BLADDER: Unremarkable. REPRODUCTIVE: Heterogeneous uterus and bilateral adnexa. BONES: Scoliotic curvature of the spine. OTHER FINDINGS: None. IMPRESSION: 1. Mildly dilated fluid-filled appendix concerning for developing or early acute appendicitis. Clinical correlation is recommended. Alternatively, correlation with an oral contrast CT scan may be helpful to confirm lack of filling of the appendix. 2. Dilated fluid and stool filled loops of distal ileum noted adjacent to the appendix. Under distended transverse colon, limits evaluation at that level. Correlation with oral contrast-enhanced scan may helpful for better delineation of the bowel. 3. Free fluid in the right pelvis greater than left. Additional findings as above. These findings were preliminarily reported at 12:32 a.m. on 09/28/[address] Sheryl Tieno from [facility].
--- NOTE | 2017-09-28 09:40 | RAD ---
Date of service: 09/28/2017 HISTORY: pre-op COMPARISON: 11/06/2016 FINDINGS: LUNGS: No active pulmonary disease. PLEURA: No significant pleural effusion identified, no pneumothorax apparent. CARDIOVASCULAR: Normal. OSSEOUS STRUCTURES: No significant abnormalities. VISUALIZED UPPER ABDOMEN: Normal. OTHER FINDINGS: None. IMPRESSION: No active disease.
--- NOTE | 2017-09-28 14:16 | CP.PCM.CON ---
History of Present Illness - History of Present Illness History of Present Illness: ASKED TO SEE PT BY DR KALE VERA FOR CARDIOLOGY CONSULT COVERAGE. 22 Y/O FEMALE WITH ACUTE APPENDICITIS, IN NEED OF SURGICAL INTERVENTION. ASKED TO SEE PT FOR CARDIOVASCULAR EVAL PRIOR TO SURGERY. PT HAS A RECENT HX OF PERICARIAL EFFUSION NOTED ON OUT PT ECHO. REPEAT INPT ECHO REVEALS PLEURAL EFFUSION AND NO EVIDENCE OF PERICARDIAL EFFUSION. PT DENIES CP, PALP, LH, DIZZINESS, SOB. SHE ADMITS TO ABD PAIN, LOSS OF APPETITE, FATIGUE AND FEVER. PT HAS NO ORTHOPNEA, PND, ARSENIO, BYRNES. Review of Systems - Constitutional Constitutional: As Per HPI, Fatigue, Fever, Malaise. absent: Anorexia, Chills, Daytime Sleepiness, Excessive Sweating, Frequent Falls, Headache, Increased Appetite, Lethargy, Night Sweats, Snoring, Sleep Apnea, Weight Gain, Weight Loss , Weakness, Other - EENT Eyes: As Per HPI. absent: Blind Spots, Blurred Vision, Change in Vision, Decreased Night Vision, Diplopia, Discharge, Dry Eye, Exophthalmos, Floaters, Irritation, Itchy Eyes, Loss of Peripheral Vision, Pain, Photophobia, Requires Corrective Lenses, Sees Flashes, Spots in Vision, Tunnel Vision, Other Visual Disturbances, Loss of Vision, Other Ears: As Per HPI. absent: Decreased Hearing, Ear Discharge, Ear Pain, Tinnitus , Abnormal Hearing, Disequilibrium, Dizziness, Other Nose/Mouth/Throat: As Per HPI. absent: Epistaxis, Nasal Congestion, Nasal Discharge, Nasal Obstruction, Nasal Trauma, Nose Pain, Post Nasal Drip, Sinus Pain, Sinus Pressure, Bleeding Gums, Change in Voice, Dental Pain, Dry Mouth, Dysphagia, Halitosis, Hoarsness, Lip Swelling, Mouth Lesions, Mouth Pain, Odynophagia, Sore Throat, Throat Swelling, Tongue Swelling, Facial Pain, Neck Pain, Neck Mass, Other - Breasts Breasts: As Per HPI. absent: Change in Shape, Mass, Pain, Nipple Discharge, Nipple Inversion, Skin Changes, Swelling, Other - Cardiovascular Cardiovascular: As Per HPI. absent: Acrocyanosis, Chest Pain, Chest Pain at Rest, Chest Pain with Activity, Claudication, Diaphoresis, Dyspnea, Dyspnea on Exertion, Edema, Irregular Heart Rhythm, Pain Radiating to Arm/Neck/Jaw, Leg Edema, Leg Ulcers, Lightheadedness, Orthopnea, Palpitations, Paroxysmal Nocturnal Dyspnea, Pedal Edema, Radiating Pain, Rapid Heart Rate, Slow Heart Rate, Syncope, Other - Respiratory Respiratory: As Per HPI. absent: Cough, Dyspnea, Hemoptysis, Dyspnea on Exertion, Wheezing, Snoring, Stridor, Pain on Inspiration, Chest Congestion, Excessive Mucous Production, Change in Mucous Color, Pain with Coughing, Other - Gastrointestinal Gastrointestinal: As Per HPI, Abdominal Pain. absent: Belching, Bloating, Change in Bowel Habits, Change in Stool Character, Coffee Ground Emesis, Constipation, Cramping, Diarrhea, Dyspepsia, Dysphagia, Early Satiety, Excessive Flatus, Fecal Incontinence, Heartburn, Hematemesis, Hematochezia, Loose Stools, Melena, Nausea, Odynophagia, Temesmus, Vomiting, Other - Genitourinary Genitourinary: As Per HPI. absent: Change in Urinary Stream, Difficulty Urinating, Dysuria, Flank Pain, Hematuria, Pyuria, Nocturia, Urinary Incontinence, Urinary Frequency, Urinary Hesitance, Urinary Urgency, Voiding Freq/Small Amts, Freq UTI, Hx Renal/Bladder Calculi, Hx /Renal Surgery, Bladder Distension, Other - Reproductive: Female Reproductive:Female: As Per HPI. absent: Amenorrhea, Amenorrhea/ Control, Currently Menstual, Cycle <21 Days, Cycle >35 Days, Cycle Variable, Menses 1-7 Days, Menses >/= 8 Days, Menses Variable, Cycle > 4 Weeks Between, No Menses for 6 Months, Heavy Menses, Light Menses, Normal Menses, Spotting Between Cycles , S/P Hysterectomy, Menopausal, Post Menopausal, Premenarche, Abnormal Vaginal Bleeding, Dysmenorrhea, Dyspareunia, Genital Lesions, Genital Pruritis, Pelvic Pain, Prolapse Symptoms, Sexual Dysfunction, Vaginal Discharge, Vaginal Dryness , Vaginal Odor, Vaginal Pruritis, Other - Menstruation Menstruation: As Per HPI. absent: Amenorrhea, Amenorrhea/ Control, Currently Menstual, Cycle <21 Days, Cycle >35 Days, Cycle Variable, Menses 1-7 Days, Menses >/= 8 Days, Menses Variable, Cycle > 4 Weeks Between, No Menses for 6 Months, Heavy Menses, Light Menses, Normal Menses, Spotting Between Cycles , S/P Hysterectomy, Menopausal, Post Menopausal, Premenarche, Abnormal Vaginal Bleeding, Dysmenorrhea, Other - Musculoskeletal Musculoskeletal: As Per HPI. absent: Abnormal Gait, Arthralgias, Atrophy, Back Pain, Deformity, Joint Swelling, Limited Range of Motion, Loss of Height, Muscle Cramps, Muscle Weakness, Myalgias, Neck Pain, Numbness, Radiating Pain into Limb, Stiffness, Tingling, Other - Integumentary Integumentary: As Per HPI. absent: Acne, Alopecia, Bleeding Lesions, Change in Hair, Change in Nails, Change in Pigmentation, Changing Lesions, Dry Skin, Erythema, Furuncle, Hirsutism, Lesions, New Lesions, Non-Healing Lesions, Photosensitivity, Pruritus, Rash, Skin Pain, Skin Ulcer, Sores, Striae, Swelling , Unusual Bruising, Wounds, Jaundice, Other - Neurological Neurological: As Per HPI. absent: Abnormal Gait, Abnormal Hearing, Abnormal Movements, Abnormal Speech, Behavioral Changes, Burning Sensations, Confusion, Convulsions, Disequilibrium, Dizziness, Numbness, Focal Weakness, Frequent Falls , Headaches, Lack of Coordination, Loss of Vision, Memory Loss, Paresthesias, Radicular Pain, Restless Legs, Sensory Deficit, Syncope, Tingling, Tremor, Vertigo, Weakness, Other Visual Disturbances, Other - Psychiatric Psychiatric: As Per HPI. absent: Abnormal Sleep Pattern, Anhedonia, Anxiety, Auditory Hallucinations, Behavioral Changes, Change in Appetite, Change in Libido, Confusion, Depression, Difficulty Concentrating, Hallucinations, Homicidal Ideation, Hopelessness, Irritability, Memory Loss, Mood Swings, Panic Attacks, Paranoia, Suicidal Ideation, Visual Hallucinations, Tactile Hallucinations, Other - Endocrine Endocrine: As Per HPI. absent: Change in Body Appearance, Change in Libido, Cold Intolorance, Deepening of Voice, Excessive Sweating, Fatigue, Flushing, Heat Intolorance, Increase in Ring/Shoe/Hat Size, Palpitations, Polydipsia, Polyphagia, Polyuria, Other - Hematologic/Lymphatic Hematologic: As Per HPI. absent: Easy Bleeding, Easy Bruising, Lymphadenopathy , Other Past Patient History - Past Medical History & Family History Past Medical History?: Yes - Past Social History Smoking Status: Never Smoked Chewing Tobacco Use: No Cigar Use: No Alcohol: None Drugs: Denies Home Situation {Lives}: With Family - CARDIAC Hx Hypercholesterolemia: Yes - PULMONARY Hx Respiratory Disorders: No - NEUROLOGICAL Hx Neurological Disorder: No - HEENT Hx HEENT Problems: No - RENAL Hx Chronic Kidney Disease: No - ENDOCRINE/METABOLIC Hx Endocrine Disorders: No - HEMATOLOGICAL/ONCOLOGICAL Hx Blood Disorders: No - INTEGUMENTARY Hx Dermatological Problems: No - MUSCULOSKELETAL/RHEUMATOLOGICAL Hx Musculoskeletal Disorders: No Hx Falls: No - GASTROINTESTINAL Hx Gastrointestinal Disorders: No - GENITOURINARY/GYNECOLOGICAL Hx Genitourinary Disorders: No - PSYCHIATRIC Hx Substance Use: No - SURGICAL HISTORY Hx Surgeries: No - ANESTHESIA Hx Anesthesia: No Hx Anesthesia Reactions: No Hx Malignant Hyperthermia: No Has any member of the family had a problem w/ anesthesia?: No Meds Allergies/Adverse Reactions: Allergies Allergy/AdvReac Type Severity Reaction Status Date / Time No Known Allergies Allergy Unverified 07/28/17 23:33 - Medications Medications: Current Medications Acetaminophen (Tylenol 325mg Tab) 650 mg PO Q6 PRN PRN Reason: Fever >100.4 F Lactated Ringer's (Lactated Ringer's) 1,000 mls @ 100 mls/hr IV .Q10H [facility] Last Admin: 09/28/17 12:30 Dose: 100 mls/hr Piperacillin Sod/Tazobactam (Sod 3.375 gm/ Sodium Chloride) 100 mls @ 200 mls/ hr IVPB Q6H [facility] PRN Reason: Protocol Last Admin: 09/28/17 13:40 Dose: 200 mls/hr Morphine Sulfate (Morphine) 4 mg IVP Q4 PRN PRN Reason: Pain, moderate (4-7) Ondansetron HCl (Zofran Inj) 4 mg IVP Q6H PRN PRN Reason: Nausea/Vomiting Physical Exam - Constitutional Appears: Non-toxic - Head Exam Head Exam: ATRAUMATIC, NORMAL INSPECTION, NORMOCEPHALIC - Eye Exam Eye Exam: EOMI, Normal appearance, PERRL. absent: Conjunctival injection, Nystagmus, Periorbital swelling, Periorbital tenderness, Scleral icterus Pupil Exam: NORMAL ACCOMODATION, PERRL. absent: Fixed, Irregular, Miosis, Mydriatic, Unequal - ENT Exam ENT Exam: Mucous Membranes Dry - Neck Exam Neck exam: Positive for: Full Rom, Normal Inspection. Negative for: Lymphadenopathy, Meningismus, Tenderness, Thyromegaly - Respiratory Exam Respiratory Exam: Clear to Auscultation Bilateral, NORMAL BREATHING PATTERN. absent: Accessory Muscle Use, Chest Wall Tenderness, Decreased Breath Sounds, Prolonged Expiratory Phase, Rales, Rhonchi, Wheezes, Respiratory Distress, Stridor - Cardiovascular Exam Cardiovascular Exam: REGULAR RHYTHM, +S1, +S2, Systolic Murmur. absent: Bradycardia, Tachycardia, Clicks, Diastolic murmur, Gallop, Irregular Rhythm, JVD, RRR, Rubs, +S4 - GI/Abdominal Exam GI & Abdominal Exam: Guarding, Normal Bowel Sounds, Tenderness. absent: Bruit, Diminished Bowel Sounds, Distended, Firm, Hernia, Hyperactive Bowel Sounds, Hypoactive Bowel Sounds, Mass, Organomegaly, Pulsatile Mass, Rebound, Rigid, Soft - Rectal Exam Rectal Exam: Deferred - Extremities Exam Extremities exam: Positive for: normal inspection, pedal pulses present. Negative for: calf tenderness, full ROM, joint swelling, normal capillary refill , pedal edema, tenderness - Back Exam Back exam: NORMAL INSPECTION. absent: CVA tenderness (L), CVA tenderness (R), FULL ROM, muscle spasm, paraspinal tenderness, rash noted, tenderness, vertebral tenderness - Neurological Exam Neurological exam: Alert, CN II-XII Intact, Oriented x3 - Psychiatric Exam Psychiatric exam: Normal Affect, Normal Mood - Skin Skin Exam: Dry, Intact, Normal Color, Warm Results - Vital Signs Recent Vital Signs: Last Vital Signs Temp 98.1 F 09/28/17 08:27 Pulse 54 L 09/28/17 08:27 Resp 20 09/28/17 08:27 BP 135/85 09/28/17 08:27 Pulse Ox 98 09/28/17 08:27 - Labs Result Diagrams: 09/27/17 22:05 09/27/17 22:05 Labs: Laboratory Results - last 24 hr 09/27/17 09/27/17 09/27/17 22:05 22:05 22:05 WBC 13.6 H D RBC 4.11 Hgb 13.7 Hct 40.8 MCV 99.1 H MCH 33.3 H MCHC 33.6 RDW 13.2 Plt Count 241 MPV 9.2 Neut % (Auto) 73.7 Lymph % (Auto) 19.5 L [place] % (Auto) 5.2 Eos % (Auto) 1.1 Baso % (Auto) 0.5 Neut # (Auto) 10.0 H Lymph # (Auto) 2.7 [place] # (Auto) 0.7 Eos # (Auto) 0.2 Baso # (Auto) 0.1 PT 11.8 INR 1.1 APTT 28 Sodium Potassium Chloride Carbon Dioxide Anion Gap BUN Creatinine Est GFR ( Amer) Est GFR (Non-Af Amer) Random Glucose Calcium Total Bilirubin AST ALT Alkaline Phosphatase Total Protein Albumin Globulin Albumin/Globulin Ratio Lipase Urine Color Yellow Urine Clarity Clear Urine pH 6.0 Ur Specific [place] 1.025 Urine Protein Negative Urine Glucose (UA) Normal Urine Ketones Negative Urine Blood Negative Urine Nitrate Negative Urine Bilirubin Negative Urine Urobilinogen 2.0 H Ur Leukocyte Esterase Neg Urine WBC (Auto) 1 Urine RBC (Auto) 5 H Ur Squamous Epith Cells 1 Urine HCG, Qual Negative Blood Type Antibody Screen 09/27/17 09/28/17 22:05 04:26 WBC RBC Hgb Hct MCV MCH MCHC RDW Plt Count MPV Neut % (Auto) Lymph % (Auto) [place] % (Auto) Eos % (Auto) Baso % (Auto) Neut # (Auto) Lymph # (Auto) [place] # (Auto) Eos # (Auto) Baso # (Auto) PT INR APTT Sodium 144 Potassium 3.7 Chloride 102 Carbon Dioxide 26 Anion Gap 19 BUN 9 Creatinine 0.8 Est GFR ( Amer) > 60 Est GFR (Non-Af Amer) > 60 Random Glucose 111 H Calcium 9.6 Total Bilirubin 0.5 AST 18 ALT 20 Alkaline Phosphatase 44 Total Protein 7.9 Albumin 4.5 Globulin 3.4 Albumin/Globulin Ratio 1.3 Lipase 74 Urine Color Urine Clarity Urine pH Ur Specific [place] Urine Protein Urine Glucose (UA) Urine Ketones Urine Blood Urine Nitrate Urine Bilirubin Urine Urobilinogen Ur Leukocyte Esterase Urine WBC (Auto) Urine RBC (Auto) Ur Squamous Epith Cells Urine HCG, Qual Blood Type A POSITIVE Antibody Screen Negative Assessment & Plan (1) Appendicitis Status: Acute (2) Pre-operative cardiovascular examination Status: Acute (3) Pericardial disease Status: Resolved (4) Pleural effusion Status: Acute (5) HTN (hypertension) Status: Chronic - Assessment and Plan (Free Text) Plan: PT MAY PROCEED TO OR FOR APPENDECTOMY. SHE IS LOW CV RISK WITH ANESTHESIA. PT HAS NO EVIDENCE OF PERICARDIAL EFFUSION. EF IS NORMAL. PT DOES HAVE MULTIPLE SEROSAL LININGS INVOLVED BOTH CURRENTLY AND PER HX. SHOULD CONSIDER EVAL FOR UNDERLYING INFLAM DISEASES.
[2017-09-28] MEDS ORDERED: Propofol 10 mg/ml Inj (20 ML) ONE ×2 (17:05→18:13)
[2017-09-28] MEDS ORDERED: Midazolam 2 MG/2 ML VIAL ONE (17:05)
[2017-09-28] MEDS ORDERED: Rocuronium 10 mg/ml (5 ml) ONE (17:09)
[2017-09-28] MEDS ORDERED: HYDROmorphone 0.5 mg/0.5 ml ISec IVP PRN ×2 (17:12→19:41)
[2017-09-28] MEDS: Lidocaine/Epinephrine 1% 1:100000 10 ML IJ ONE ×2 (18:23→18:42)
[2017-09-28] MEDS: Bupivacaine 0.25% 20 ML INJ IJ ONE ×2 (18:23→18:42)
[2017-09-28] MEDS ORDERED: Lactated Ringer's 1,000 ML IV ONE ×2 (19:39→20:15)
--- NOTE | 2017-09-28 19:43 | PCM.SURG1 ---
Surgeon's Initial Post Op Note - Surgeon's Notes Surgeon: Mateusz Sample Grinder: Romeo PGY4, Valencia PGY2 Type of Anesthesia: General Endo, Local Pre-Operative Diagnosis: Appendicitis Operative Findings: Acutely inflamed appendix Post-Operative Diagnosis: same Operation Performed: laparoscopic appendectomy Specimen/Specimens Removed: appendix Estimated Blood Loss: EBL {In ML}: 20 Blood Products Given: N/A Drains Used: No Drains Post-Op Condition: Good Date of Surgery/Procedure: 09/28/17 Time of Surgery/Procedure: 19:43
[2017-09-29] MEDS: Piperacillin/Tazobact 3.375 GM in Sodium Chloride 100 ML IVPB SCH ×3 (00:09→12:43)
[2017-09-29] MEDS: oxyCODONE 5 mg Immediate Release Tab PO PRN ×3 (00:15→13:48)
[2017-09-29 00:30] VITALS: RESP 20; O2SAT 99
[2017-09-29] MEDS ORDERED: Lactated Ringer's 1,000 ML IV SCH (05:29)
--- NOTE | 2017-09-29 06:37 | OP ---
PROCEDURE DATE: 09/28/2017 PREOPERATIVE DIAGNOSES: Acute appendicitis and leukocytosis. POSTOPERATIVE DIAGNOSES: 1. Acute appendicitis. 2. Purulent pelvic collection. PROCEDURES DONE: 1. Laparoscopic appendectomy. 2. Laparoscopic drainage of pelvic purulent collection. SURGEON: Scott Child MD ASSISTANTS: Maurice Walters DO, PGY-4 resident and Joby Birmingham DO, PGY-2 resident. ANESTHESIA: General endotracheal tube anesthesia. ESTIMATED BLOOD LOSS: Around 10 mL. DRAINS: None. PATHOLOGY: Appendix was sent for the pathology. COMPLICATIONS: None. INTRAOPERATIVE FINDINGS: The patient had acute suppurative appendicitis with purulent pelvic collection. DESCRIPTION OF PROCEDURE: On intraoperative steps, this is a 22-year-old female who was diagnosed with acute appendicitis and leukocytosis. The patient was consented for the laparoscopic appendectomy, possible open. Brought to the OR, placed supine on the operating table. After induction of the anesthesia, the abdomen was prepped and draped in the usual sterile fashion. The supraumbilical transverse incision was made after incising the skin, subcutaneous tissue, and the fascia. The Eriberto port was placed. Pneumo was created. Another 12 mm port was placed in the left lower quadrant. A 5 mm port was placed in the suprapubic region. After that, the grasper and dissector were introduced. Appendix and mesoappendix were identified. The mesoappendix was resected with Harmonic scalpel, and the base of the appendix was resected with a ANIKA. There was some bleeding from the staple line that was controlled with 5 mm clip. After proper hemostasis, the pelvis was examined. The patient was found to have purulent pelvic collection that was also drained and suctioned irrigated. Now, again suction irrigation of the pelvic, perihepatic area, as well as the periappendicular area was done and there was no bleeding identified. After proper careful hemostasis, all the ports were taken out under vision. Pneumo was deflated. Umbilical port site was closed in two layers; the fascia with 0 Vicryl suture, skin with 4-0 Monocryl, and dry sterile dressing was applied. The patient tolerated the procedure well. Count of instruments and gauze was correct. There were no apparent complications. The patient was extubated in OR, sent to the postanesthesia care unit in stable condition. Scott Child MD [facility] # [id number]
[2017-09-29 06:40] LABS: BASO % 0.4 % (0.0-2.0); EOS # 0.1 K/uL (0.0-0.7); EOS % 0.8 % (0.0-4.0); LYMPH # 1.7 K/uL (1.0-4.3); LYMPH % 26.2 % (20.0-40.0); MEAN CELL VOLUME 98.1 fL (81.0-99.0); MEAN CORPUSCULAR HEMOGLOBIN 34.1 pg (27.0-31.0); MEAN CORPUSCULAR HGB CONC 34.8 g/dL (33.0-37.0); MEAN PLATELET VOLUME 9.8 fL (7.2-11.7); MONO # 0.5 K/uL (0.0-0.8); MONO % 7.4 % (0.0-10.0); NEUT # 4.3 K/uL (1.8-7.0); NEUT % 65.2 % (50.0-75.0); NRBC % 0.1 % (0.0-2.0); RBC 3.53 Mil/uL (3.80-5.20); RED CELL DISTRIBUTION WIDTH 13.1 % (11.5-14.5); WHITE BLOOD COUNT 6.6 K/uL (4.8-10.8)
[2017-09-29 06:46] LABS: BLOOD UREA NITROGEN 7 mg/dL (7-17); GFR AFRICAN-AMERICAN > 60; GFR NON-AFRICAN AMERICAN > 60
--- NOTE | 2017-09-29 06:48 | CP.PCM.PN ---
Objective - Vital Signs/Intake and Output Vital Signs (last 24 hours): Temp Pulse Resp BP Pulse Ox 98.2 F 96 H 20 128/85 99 09/29/17 00:00 09/29/17 00:00 09/29/17 00:00 09/29/17 00:00 09/29/17 00:00 Intake and Output: 09/28/17 09/29/17 18:59 06:59 Intake Total 600 1350 Balance 600 1350 - Medications Medications: Current Medications Acetaminophen (Tylenol 325mg Tab) 650 mg PO Q6 PRN PRN Reason: Fever >100.4 F Piperacillin Sod/Tazobactam (Sod 3.375 gm/ Sodium Chloride) 100 mls @ 200 mls/ hr IVPB Q6H [facility] PRN Reason: Protocol Last Admin: 09/29/17 06:17 Dose: 200 mls/hr Lactated Ringer's (Lactated Ringer's) 1,000 mls @ 50 mls/hr IV .Q20H [facility] Last Admin: 09/29/17 06:22 Dose: 50 mls/hr Magnesium Sulfate/Dextrose (Magnesium Sulfate 1 Gm/100 Ml D5w) 1 gm in 100 mls @ 300 mls/hr IVPB Q30M [facility] Stop: 09/29/17 07:49 Ondansetron HCl (Zofran Inj) 4 mg IVP Q6H PRN PRN Reason: Nausea/Vomiting Oxycodone HCl (Oxycodone Immediate Release Tab) 5 mg PO Q6 PRN PRN Reason: Pain, moderate (4-7) Last Admin: 09/29/17 06:20 Dose: 5 mg - Labs Labs: 09/29/17 06:23 09/29/17 06:20 PT 11.8 SECONDS (9.7-12.2) 09/27/17 22:05 INR 1.1 09/27/17 22:05 APTT 28 SECONDS (21-34) 09/27/17 22:05
[2017-09-29] MEDS: Magnesium Sulfate 1 gm in D5W 1 GM/100 ML BAG IVPB SCH ×2 (07:13→09:02)
--- NOTE | 2017-09-29 09:08 | CP.PCM.DIS ---
Provider - Provider Date of Admission: 09/28/17 01:04 Attending physician: Scott Child MD Consults: Cardio: Ignacio Medicine: Nando Time Spent in preparation of Discharge (in minutes): 45 Hospital Course - Lab Results Lab Results: Most Recent Lab Values WBC 6.6 K/uL (4.8-10.8) D 09/29/17 06:23 RBC 3.53 Mil/uL (3.80-5.20) L 09/29/17 06:23 Hgb 12.0 g/dL (11.0-16.0) 09/29/17 06:23 Hct 34.6 % (34.0-47.0) 09/29/17 06:23 MCV 98.1 fL (81.0-99.0) 09/29/17 06:23 MCH 34.1 pg (27.0-31.0) H 09/29/17 06:23 MCHC 34.8 g/dL (33.0-37.0) 09/29/17 06:23 RDW 13.1 % (11.5-14.5) 09/29/17 06:23 Plt Count 184 K/uL (130-400) 09/29/17 06:23 MPV 9.8 fL (7.2-11.7) 09/29/17 06:23 Neut % (Auto) 65.2 % (50.0-75.0) 09/29/17 06:23 Lymph % (Auto) 26.2 % (20.0-40.0) 09/29/17 06:23 [place] % (Auto) 7.4 % (0.0-10.0) 09/29/17 06:23 Eos % (Auto) 0.8 % (0.0-4.0) 09/29/17 06:23 Baso % (Auto) 0.4 % (0.0-2.0) 09/29/17 06:23 Neut # (Auto) 4.3 K/uL (1.8-7.0) 09/29/17 06:23 Lymph # (Auto) 1.7 K/uL (1.0-4.3) 09/29/17 06:23 [place] # (Auto) 0.5 K/uL (0.0-0.8) 09/29/17 06:23 Eos # (Auto) 0.1 K/uL (0.0-0.7) 09/29/17 06:23 Baso # (Auto) 0.0 K/uL (0.0-0.2) 09/29/17 06:23 PT 11.8 SECONDS (9.7-12.2) 09/27/17 22:05 INR 1.1 09/27/17 22:05 APTT 28 SECONDS (21-34) 09/27/17 22:05 Sodium 137 mmol/L (132-148) 09/29/17 06:20 Potassium 3.9 mmol/L (3.6-5.2) 09/29/17 06:20 Chloride 102 mmol/L (98-107) 09/29/17 06:20 Carbon Dioxide 28 mmol/L (22-30) 09/29/17 06:20 Anion Gap 12 (10-20) 09/29/17 06:20 BUN 7 mg/dL (7-17) 09/29/17 06:20 Creatinine 0.8 mg/dL (0.7-1.2) 09/29/17 06:20 Est GFR ( Amer) > 60 09/29/17 06:20 Est GFR (Non-Af Amer) > 60 09/29/17 06:20 Random Glucose 96 mg/dL (65-105) 09/29/17 06:20 Calcium 9.0 mg/dl (8.6-10.4) 09/29/17 06:20 Phosphorus 3.8 mg/dL (2.5-4.5) 09/29/17 06:20 Magnesium 1.5 mg/dL (1.6-2.3) L 09/29/17 06:20 Total Bilirubin 0.5 mg/dL (0.2-1.3) 09/27/17 22:05 AST 18 U/L (14-36) 09/27/17 22:05 ALT 20 U/L (9-52) 09/27/17 22:05 Alkaline Phosphatase 44 U/L (38-126) 09/27/17 22:05 Total Protein 7.9 g/dL (6.3-8.3) 09/27/17 22:05 Albumin 4.5 g/dL (3.5-5.0) 09/27/17 22:05 Globulin 3.4 gm/dL (2.2-3.9) 09/27/17 22:05 Albumin/Globulin Ratio 1.3 (1.0-2.1) 09/27/17 22:05 Lipase 74 U/L (23-300) 09/27/17 22:05 Urine Color Yellow (YELLOW) 09/27/17 22:05 Urine Clarity Clear (Clear) 09/27/17 22:05 Urine pH 6.0 (5.0-8.0) 09/27/17 22:05 Ur Specific [place] 1.025 (1.003-1.030) 09/27/17 22:05 Urine Protein Negative mg/dL (NEGATIVE) 09/27/17 22:05 Urine Glucose (UA) Normal mg/dL (Normal) 09/27/17 22:05 Urine Ketones Negative mg/dL (NEGATIVE) 09/27/17 22:05 Urine Blood Negative (NEGATIVE) 09/27/17 22:05 Urine Nitrate Negative (NEGATIVE) 09/27/17 22:05 Urine Bilirubin Negative (NEGATIVE) 09/27/17 22:05 Urine Urobilinogen 2.0 mg/dL (0.2-1.0) H 09/27/17 22:05 Ur Leukocyte Esterase Neg Vicente/uL (Negative) 09/27/17 22:05 Urine WBC (Auto) 1 /hpf (0-5) 09/27/17 22:05 Urine RBC (Auto) 5 /hpf (0-3) H 09/27/17 22:05 Ur Squamous Epith Cells 1 /hpf (0-5) 09/27/17 22:05 Urine HCG, Qual Negative (NEGATIVE) 09/27/17 22:05 Blood Type A POSITIVE 09/28/17 04:26 Antibody Screen Negative 09/28/17 04:26 Discharge Exam - Head Exam Head Exam: ATRAUMATIC, NORMAL INSPECTION, NORMOCEPHALIC Discharge Plan - Discharge Medications Prescriptions: Amoxicillin/Clavulanate [Augmentin 875 MG-125 MG] 1 tab PO BID #14 tab Docusate Sodium [Colace] 100 mg PO BID #14 capsule Lactobacillus Acidophilus [Acidophilus Lactobacillus] 1 each PO BID #14 capsule oxyCODONE/Acetaminophen [Percocet 5/325 mg Tab] 1 ea PO Q6H PRN #12 tab PRN Reason: Pain, Moderate (4-7) - Follow Up Plan Condition: STABLE Disposition: HOME/ ROUTINE Instructions: DASH Diet, High Blood Pressure (DC), Amoxicillin and Clavulanate , Docusate, Lactobacillus, Oxycodone and Acetaminophen, Appendectomy, Laparoscopic Surgery (DC) Additional Instructions: Take Augmentin, Acidophillus lactobacillus, percocet and colace as prescribed Keep bandage on for 5 days No heavy lifting for 4 weeks Patient to sponge until follow up with Dr. Child Keep surgical areas clean and dry Follow up with Dr. Child within 1-[address] Child regarding any issues
[2017-09-29] MEDS ORDERED: Magnesium Sulfate 1 gm in D5W 1 GM/100 ML BAG IVPB ONE (09:55)
[2017-09-29] MEDS ORDERED: Magnesium Sulfate 1 gm in D5W 1 GM/100 ML BAG IVPB SCH (10:00)
--- NOTE | 2017-09-29 14:41 | CP.PCM.PN ---
Subjective - Date & Time of Evaluation Date of Evaluation: 09/29/17 Time of Evaluation: 09:00 - Subjective Subjective: PGY-[address] Collier. Patient seen and evaluated at bedside, in no acute distress. POD #1 s/p Patient complains of abdominal pain to surgical incision sites, however it is improved from yesterday. Objective - Vital Signs/Intake and Output Vital Signs (last 24 hours): Temp Pulse Resp BP Pulse Ox 98.0 F 54 L 20 124/81 99 09/29/17 07:28 09/29/17 07:28 09/29/17 07:28 09/29/17 07:28 09/29/17 07:28 Intake and Output: 09/29/17 09/29/17 06:59 18:59 Intake Total 1350 Balance 1350 - Medications Medications: Current Medications Acetaminophen (Tylenol 325mg Tab) 650 mg PO Q6 PRN PRN Reason: Fever >100.4 F Piperacillin Sod/Tazobactam (Sod 3.375 gm/ Sodium Chloride) 100 mls @ 200 mls/ hr IVPB Q6H LESLIE PRN Reason: Protocol Last Admin: 09/29/17 12:43 Dose: 200 mls/hr Lactated Ringer's (Lactated Ringer's) 1,000 mls @ 50 mls/hr IV .Q20H [facility] Last Admin: 09/29/17 06:22 Dose: 50 mls/hr Ondansetron HCl (Zofran Inj) 4 mg IVP Q6H PRN PRN Reason: Nausea/Vomiting Oxycodone HCl (Oxycodone Immediate Release Tab) 5 mg PO Q6 PRN PRN Reason: Pain, moderate (4-7) Last Admin: 09/29/17 13:48 Dose: 5 mg - Labs Labs: 09/29/17 06:23 09/29/17 06:20 PT 11.8 SECONDS (9.7-12.2) 09/27/17 22:05 INR 1.1 09/27/17 22:05 APTT 28 SECONDS (21-34) 09/27/17 22:05 - Constitutional Appears: No Acute Distress - Head Exam Head Exam: ATRAUMATIC, NORMOCEPHALIC - Eye Exam Eye Exam: EOMI, Normal appearance - ENT Exam ENT Exam: Mucous Membranes Moist - Respiratory Exam Respiratory Exam: Clear to Ausculation Bilateral, NORMAL BREATHING PATTERN. absent: Rales, Rhonchi, Wheezes - Cardiovascular Exam Cardiovascular Exam: REGULAR RHYTHM, +S1, +S2 - GI/Abdominal Exam GI & Abdominal Exam: Tenderness (generalized), Normal Bowel Sounds Additional comments: bandages noted over 3 trochar incision, clean, dry and intact. - Extremities Exam Extremities Exam: Full ROM. absent: Pedal Edema, Tenderness - Neurological Exam Neurological Exam: Alert, Awake, Oriented x3 - Psychiatric Exam Psychiatric exam: Normal Mood - Skin Skin Exam: Dry, Normal Color, Warm Assessment and Plan - Assessment and Plan (Free Text) Plan: ) Acute Appendicitis Assessment and plan Patient admitted to general surgery. General surgeon Dr. Cruz on the case Preoperative/intraoperative/postoperative management per surgery Chemical anticoagulation to be determined by surgery Pain management to be determined by surgery Zosyn 3.375gm IV Q6H (started 09/28/17, Day 1) LR @ 100cc/hr Tylenol 650mg PO Q6H PRN Morphine 4mg IV Q4H PRN Zofran 4mg IV Q6H PRN for nausea NPO Medicine on consult for medical clearance in light of medical history including pericardial effusion and cholesterol CT A/P (09/28/17): Mildly dilated, fluid filled appendix concerning for early appendicitis although there is no significant periappendiceal inflammation. Clinical correlation is recommended and if clinical findings are ambivalent, CT with oral contrast may be helpful to confirm lack of filling of the appendix. Lipase 74,LFTs WNL Pre-op testing: CXR (09/28/17): No acute disease Coags: INR 1.1 B-HCG test: negative EKG: Sinus bradycardia heart rate 53 no blocks noted---> asymptomatic Dr. Pierre, Cardio consulted for cardiac clearance, help appreciated - STAT ECHO prior to surgery: Reviewed with resident: Normal systolic LV function, her special effects designer stable for surgery Nic Peripoerative Cardiac Risk Score: 0.21% Estimated Risk Probability for Perioperative Myocardial Infarction or Cardiac Arrest Detsky score cardiac risk for noncardiac surgery :1 associated Class II (7% Complication Risk) Patient is medically optimized prior to procedure. Surgery and anesthesia anesthesia to discuss the risk and benefits of procedure respectively. 2) History of Pericardial Effusion Assessment and plan * Previous ECHO (08/2017): Performed outpatient. Seen by Car Checker Dr Pirere who reports it showed "pericardial effusion without signs of LV dysfunction" * Dr. Pierre, Cardio consulted for cardiac clearance, help appreciated * Completed STAT ECHO- EF 50-55%. normal LV function. No AR. Mild MR. Mild TR. No pulmonary HTN. No pulmonic valvular regurgitation. * Per cardiology, stable for procedure 3) Hyperlipidemia Assessment and plan * Continue Home Fish Oil 1 gm daily once no longer NPO 4) Leukocytosis Assessment and plan * WBC 13.6 on admission, without left shift or bandemia * Afebrile * Etiology: Appendicitis * Antibiotics as above * Monitor 5) Abnormal UA Assessment and plan * Patient is asymptomatic for any Urinary tract infection. * Patient reports she finished the last day of her period yesterday. * Recommend repeat UA patient has completed period. 6) Prophylaxis * SCDs * HOLD heparin due to pending surgical intervention; restart on surgical team instructions Pt stable and no further inpatient medical intervention required. Patient is to follow up with her PMD to follow up FAYE and lupus work up. Patient is to follow up with her special effects designer, Dr. Pierre, as scheduled on October 19, 2017.
[2017-09-29 15:45] VITALS: BP 131/74; PULSE 67; TEMP 98.6
--- NOTE | 2017-09-29 17:52 | CARD ---
APPROVED REPORT Date of service: 09/28/2017 EKG Measurement Heart [id number] <Conclusion> Sinus bradycardia Otherwise normal ECG
--- NOTE | 2017-09-29 23:07 | CARD ---
APPROVED REPORT Date of service: 09/28/2017 EXAM: Two-dimensional and M-mode echocardiogram with Doppler and color Doppler. Other Information Quality : GoodRhythm : INDICATION Pleural Effusion Palpitations 2D DIMENSIONS IVSd0.7 (0.7-1.1cm)Aortic Root (2D)2.8 (2.0-3.7cm) LVDd4.7 (3.9-5.9cm)PWd0.8 (0.7-1.1cm) LVDs3.3 (2.5-4.0cm)FS (%) 29.0 % LVEF (%)55.8 (>50%) M-Mode DIMENSIONS RVDd2.84 (2.1-3.2cm)Left Atrium (MM)2.68 (2.5-4.0cm) IVSd0.70 (0.7-1.1cm)Aortic Root2.81 (2.2-3.7cm) LVDd4.48 (4.0-5.6cm)Aortic Cusp Exc.2.05 (1.5-2.0cm) PWd0.70 (0.7-1.1cm)FS (%) 27 % LVDs3.25 (2.0-3.8cm)LVEF (%)53 (>50%) Mitral Valve MV E Arfblmjz40.9cm/sMV A Iujpzibn60.0cm/sE/A ratio2.4 TDI E/Lateral E'0.0E/Medial E'0.0 Tricuspid Valve TR Peak [id number]/sTR Peak Gr.[id number] LEFT VENTRICLE The left ventricle is normal size. There is normal left ventricular wall thickness. Left ventricle systolic function is normal. The Ejection Fraction is 50-55%. There is normal LV segmental wall motion. The left ventricular diastolic function is normal. RIGHT VENTRICLE The right ventricle is normal size. There is normal right ventricular wall thickness. The right ventricular systolic function is normal. ATRIA The left atrium size is normal. The right atrium size is normal. The interatrial septum is intact with no evidence for an atrial septal defect. AORTIC VALVE The aortic valve is normal in structure. No aortic regurgitation is present. There is no aortic valvular stenosis. There is no aortic valvular vegetation. MITRAL VALVE The mitral valve is normal in structure. There is no evidence of mitral valve prolapse. There is no mitral valve stenosis. Mitral regurgitation is mild. TRICUSPID VALVE The tricuspid valve is normal in structure. There is mild tricuspid regurgitation. Right ventricular systolic pressure is estimated at less than 30 mmHg. There is no pulmonary hypertension. PULMONIC VALVE The pulmonary valve is normal in structure. There is no pulmonic valvular regurgitation. GREAT VESSELS The aortic root is normal in size. PERICARDIAL EFFUSION There is no significant pericardial effusion. <Conclusion> Left ventricle systolic function is normal. The Ejection Fraction is 50-55%. No aortic regurgitation is present. Mitral regurgitation is mild. There is mild tricuspid regurgitation. There is no pulmonary hypertension. There is no pulmonic valvular regurgitation.
== END 2017-09-29 16:47 | disposition home or self-care (01) | DRG 883 ==
LOC: C.ER 21:09 → C.9E 09-28 01:04 → C.5S 09-28 07:28
PROVIDERS: ADMIT Surgery Surgical Critical Care; ATTEND Surgery Surgical Critical Care
PROC: 0W9J4ZZ Drainage of Pelvic Cavity, Percutaneous Endoscopic Approach (ICD-10-PCS; 2017-09-28)
PROC: 0DTJ4ZZ Resection of Appendix, Percutaneous Endoscopic Approach (ICD-10-PCS; principal; 2017-09-28 15:45)
DX: K35.89 Other acute appendicitis (principal); J90 Pleural effusion, not elsewhere classified; K59.00 Constipation, unspecified; E78.00 Pure hypercholesterolemia, unspecified; E78.5 Hyperlipidemia, unspecified

== ENCOUNTER 2018-02-28 21:02 | Emergency (ER) | payer MEDICAID ==
[2018-02-28 21:13] VITALS: RESP 18
[2018-02-28] MEDS ORDERED: Sodium Chloride 0.9% 1,000 ML IV ONE (21:20)
--- NOTE | 2018-02-28 21:20 | C.PDOC ---
History Of Present Illness 22 year old female presents to the ED c/o intermittent mid epigastric abdominal pain. Patient is also c/o loose stools. Patient was able to eat this morning. Patient's LMP was 02/12/18. Patient denies fever, chills, nausea, vomit, co nstipations, rash, dysuria, hematuria, weakness, numbness. Time Seen by Provider: 02/28/18 21:20 Chief Complaint (Nursing): Abdominal Pain History Per: Patient History/Exam Limitations: no limitations Onset/Duration Of Symptoms: Days Current Symptoms Are (Timing): Still Present Context: Food Location Of Pain/Discomfort: Epigastric Quality Of Discomfort: "Pain" Associated Symptoms: Diarrhea. denies: Nausea, Vomiting, Constipation, Urinary Symptoms Exacerbating Factors: Food Alleviating Factors: None Recent travel outside of the [place]: No Additional History Per: Patient Abnormal Vaginal Bleeding: No Last Menstral Period: 02/12/18 Past Medical History Reviewed: Historical Data, Nursing Documentation, Vital Signs Vital Signs: Last Vital Signs Temp 98.0 F 02/28/18 21:10 Pulse 99 H 02/28/18 21:10 Resp 18 02/28/18 21:10 BP 150/94 H 02/28/18 21:10 Pulse Ox 99 02/28/18 21:10 - Medical History PMH: Hypercholesterolemia, Hyperlipidemia Denies: Chronic Kidney Disease Surgical History: Appendectomy - [facility] Procedures DRAINAGE OF PELVIC CAVITY, PERCUTANEOUS ENDOSCOPIC APPROACH (09/28/17) RESECTION OF APPENDIX, PERCUTANEOUS ENDOSCOPIC APPROACH (09/28/17) Family History: States: Unknown Family Hx - Social History Hx Tobacco Use: No Hx Alcohol Use: No Hx Substance Use: No - Immunization History Hx Tetanus Toxoid Vaccination: No Hx Influenza Vaccination: Yes Hx Pneumococcal Vaccination: No Review Of Systems Constitutional: Negative for: Fever, Chills Eyes: Negative for: Vision Change Cardiovascular: Negative for: Chest Pain, Palpitations Respiratory: Negative for: Shortness of Breath Gastrointestinal: Positive for: Abdominal Pain, Diarrhea. Negative for: Nausea, Vomiting Genitourinary: Negative for: Dysuria, Hematuria Skin: Negative for: Rash Neurological: Negative for: Weakness, Numbness Physical Exam - Physical Exam Appears: Non-toxic, No Acute Distress Skin: Warm, Dry Head: Normacephalic Eye(s): bilateral: Normal Inspection Oral Mucosa: Moist Neck: Supple Chest: Symmetrical Cardiovascular: Rhythm Regular Respiratory: No Rales, No Rhonchi, No Wheezing Gastrointestinal/Abdominal: Soft, Tenderness (mid epigastric), No Guarding, No Rebound Back: Normal Inspection Extremity: Bilateral: Atraumatic, Normal Color And Temperature, Normal ROM Neurological/Psych: Oriented x3, Normal Speech, Normal Cognition Gait: Steady ED Course And Treatment - Laboratory Results Result Diagrams: 02/28/18 21:36 02/28/18 21:36 O2 Sat by Pulse Oximetry: 99 (ON RA) Pulse Ox Interpretation: Normal Progress Note: Plan: - Labs. - Pepcid 20 mg IVP. - IV fluids. - UA Reevaluation Time: 23:07 Reassessment Condition: Improved Disposition Counseled Patient/Family Regarding: Studies Performed, Diagnosis, Need For Followup - Disposition Referrals: Faheem August MD [Medical Doctor] - Disposition: HOME/ ROUTINE Disposition Time: 21:20 Condition: FAIR Additional Instructions: Please return if symptoms recur Instructions: Acute Abdomen (Belly Pain), Adult (DC) Forms: [employer] (Kittitian) - Clinical Impression Clinical Impression: Abdominal pain - Scribe Statement The provider has reviewed the documentation as recorded by the Scribe Bhupinder George All medical record entries made by the Scribe were at my direction and personally dictated by me. I have reviewed the chart and agree that the record accurately reflects my personal performance of the history, physical exam, medical decision making, and the department course for this patient. I have also personally directed, reviewed, and agree with the discharge instructions and disposition.
[2018-02-28] MEDS ORDERED: Sodium Chloride 0.9% 1,000 ML ONE (21:38)
[2018-02-28 21:42] LABS: BASO % 0.6 % (0.0-2.0); EOS # 0.1 K/uL (0.0-0.7); EOS % 1.7 % (0.0-4.0); HEMOGLOBIN 14.6 g/dL (11.0-16.0); LYMPH # 2.3 K/uL (1.0-4.3); LYMPH % 40.8 % (20.0-40.0); MEAN CELL VOLUME 99.8 fL (81.0-99.0); MEAN CORPUSCULAR HEMOGLOBIN 33.2 pg (27.0-31.0); MEAN CORPUSCULAR HGB CONC 33.2 g/dL (33.0-37.0); MEAN PLATELET VOLUME 9.8 fL (7.2-11.7); MONO # 0.3 K/uL (0.0-0.8); MONO % 6.1 % (0.0-10.0); NEUT # 2.8 K/uL (1.8-7.0); NEUT % 50.8 % (50.0-75.0); RBC 4.41 Mil/uL (3.80-5.20); RED CELL DISTRIBUTION WIDTH 13.3 % (11.5-14.5); WHITE BLOOD COUNT 5.5 K/uL (4.8-10.8)
[2018-02-28 21:56] LABS: ALB/GLOB RATIO 1.3 (1.0-2.1); BLOOD UREA NITROGEN 8 mg/dL (7-17); CALCIUM 9.9 mg/dl (8.6-10.4); GFR NON-AFRICAN AMERICAN > 60; LIPASE 58 U/L (23-300)
[2018-02-28 22:01] LABS: ALT/SGPT 12 U/L (9-52); AST/SGOT 29 U/L (14-36)
[2018-02-28 22:14] LABS: HCG,QUALITATIVE URINE NEGATIVE (NEGATIVE); SQUAMOUS EPITHIAL 1 /hpf (0-5); URINE BILIRUBIN NEGATIVE (NEGATIVE); URINE BLOOD NEGATIVE (NEGATIVE); URINE CLARITY Clear (Clear); URINE COLOR Yellow (YELLOW); URINE GLUCOSE (UA) NORMAL (Normal); URINE LEUKOCYTE ESTERASE NEG Leu/uL (Negative); URINE PROTEIN NEGATIVE (NEGATIVE); URINE UROBILINOGEN NORMAL mg/dL (0.2-1.0)
[2018-02-28 23:34] VITALS: BP 145/76; PULSE 74; TEMP 98.6; O2SAT 97
== END 2018-02-28 23:33 | disposition home or self-care (01) ==
LOC: C.ER 21:02
DX: R10.9 Unspecified abdominal pain (principal); E78.00 Pure hypercholesterolemia, unspecified
CPT/HCPCS: 80053; 81001; 83690; 84703; 85025; 96361; 96374; 99283; J7030

== ENCOUNTER 2018-04-04 11:43 | Emergency (ER) | payer MEDICAID | END 2018-04-04 12:32 | disposition home or self-care (01) | LOC: C.ER 11:43 ==

== ENCOUNTER 2018-05-04 21:23 | Emergency (ER) | payer MEDICAID ==
[2018-05-04 21:32] VITALS: BP 144/96; PULSE 86; RESP 20; TEMP 97.4; O2SAT 100
--- NOTE | 2018-05-04 21:55 | C.PDOC ---
History Of Present Illness 23 year old female presents to the ED c/o bilateral hand, knees and arm itching that started this afternoon. Patient reports she took one Claritin with some relief. Patient denies known allergens, hx of allergic reactions, SOB, wheezing, lip swelling, tongue swelling, nausea, vomit. Time Seen by Provider: 05/04/18 21:37 Chief Complaint (Nursing): Allergic Reaction History Per: Patient History/Exam Limitations: no limitations Onset/Duration Of Symptoms: Hrs Current Symptoms Are (Timing): Still Present Possible Cause: Unknown Associated Symptoms: Skin Rash Home/EMS Treatment: Benadryl Recent travel outside of the [place]: No Additional History Per: Patient Past Medical History Reviewed: Historical Data, Nursing Documentation, Vital Signs Vital Signs: Last Vital Signs Temp 97.4 F L 05/04/18 21:27 Pulse 86 05/04/18 21:27 Resp 20 05/04/18 21:27 BP 144/96 H 05/04/18 21:27 Pulse Ox 100 05/04/18 21:27 - Medical History PMH: Asthma, Hypercholesterolemia, Hyperlipidemia Denies: Chronic Kidney Disease Surgical History: Appendectomy - [facility] Procedures DRAINAGE OF PELVIC CAVITY, PERCUTANEOUS ENDOSCOPIC APPROACH (09/28/17) RESECTION OF APPENDIX, PERCUTANEOUS ENDOSCOPIC APPROACH (09/28/17) Family History: States: Unknown Family Hx - Social History Hx Tobacco Use: No Hx Alcohol Use: No Hx Substance Use: No - Immunization History Hx Tetanus Toxoid Vaccination: No Hx Influenza Vaccination: Yes Hx Pneumococcal Vaccination: No Review Of Systems Constitutional: Negative for: Fever, Chills ENT: Negative for: Mouth Swelling, Throat Swelling Respiratory: Negative for: Cough, Sputum, Wheezing Gastrointestinal: Negative for: Nausea, Vomiting, Abdominal Pain Skin: Positive for: Rash Neurological: Negative for: Weakness, Numbness, Headache, Dizziness Physical Exam - Physical Exam Appears: Non-toxic, No Acute Distress Skin: Normal Color, Warm, Dry, No Rash (no erythema, open lesions) Head: Atraumatic, Normacephalic Eye(s): bilateral: Normal Inspection Oral Mucosa: Moist Tongue: No Swelling Lips: No Swelling Throat: No Erythema, No Exudate, No Drooling Neck: Normal ROM, Supple Chest: Symmetrical Cardiovascular: Rhythm Regular Respiratory: Normal Breath Sounds, No Rales, No Rhonchi, No Wheezing Gastrointestinal/Abdominal: Soft, No Tenderness, No Guarding, No Rebound Extremity: Normal ROM Neurological/Psych: Oriented x3, Normal Speech, Normal Cognition Gait: Steady ED Course And Treatment O2 Sat by Pulse Oximetry: 100 (On RA) Pulse Ox Interpretation: Normal Progress Note: Plan: - Benadryl 25 mg PO. Patient still c/o itching feeling, there are no signs of rash, erythema, swelling seen. Patient is advised to continue taking Claritin or other antihistamines at home. Return precautions are discussed with patient. Disposition Counseled Patient/Family Regarding: Diagnosis, Need For Followup - Disposition Referrals: Minna Sheth [Staff Provider] - Disposition: HOME/ ROUTINE Disposition Time: 21:51 Condition: STABLE Additional Instructions: Please follow up with PMD Cintinue claritin for itching/ May take benadryl when at home or at night time for itching Return to ER if worse Instructions: Itchy Skin Forms: [employer] (Georgian) - Clinical Impression Clinical Impression: Pruritus - PA / TERRITORY OUTSIDE SALES MANAGER / Resident Statement MD/DO has reviewed & agrees with the documentation as recorded. - Scribe Statement The provider has reviewed the documentation as recorded by the Scribe Bhupinder George All medical record entries made by the Mayoibrachel were at my direction and personally dictated by me. I have reviewed the chart and agree that the record accurately reflects my personal performance of the history, physical exam, medical decision making, and the department course for this patient. I have also personally directed, reviewed, and agree with the discharge instructions and disposition.
== END 2018-05-04 22:05 | disposition home or self-care (01) ==
LOC: C.ER 21:23
DX: L29.9 Pruritus, unspecified (principal); E78.00 Pure hypercholesterolemia, unspecified; E78.5 Hyperlipidemia, unspecified